=== PATIENT | female | born 1995 | race Caucasian/White ===

== ENCOUNTER 2017-10-20 10:15 | Emergency (ER) | payer OTHER, SELFPAY ==
[2017-10-20 10:36] VITALS: BP 108/80; PULSE 97; RESP 20; TEMP 36.6; O2SAT 100; BMI 20.1
--- NOTE | 2017-10-20 10:50 | HMH.EDUTC ---
[facility] [place] Impression: Positive test Disposition: Home, Self-Care Condition on Discharge: Good Instructions: DI for -- Discomforts and Remedies Additional Instructions: Call OB to get scheduled for first US. Start vitamins. No smoking, no alcohol, no NSAIDs Prescriptions: No.40/Iron/FA/Dha [ Multi-Dha Softgel] 1 each PO DAILY 90 Days #90 cap Referrals: David Thao [Primary Care Provider] - Time of Disposition: 10:55 Medical Decision Making - Medical Records Medical records reviewed: Yes: I reviewed the patient's medical records. Vital Signs: 10/20/17 10:36 Temperature 97.8 F Temperature Source Temporal Artery Scan Pulse Rate [Left Brachial] 97 H Respiratory Rate 20 Blood Pressure [Left Arm] 108/80 Blood Pressure Mean [Left Arm] 89 Blood Pressure Source [Left Arm] Automatic Cuff Blood Pressure Position [Left Arm] Sitting 02 Sat by Pulse Oximetry 100 Oxygen Delivery Method Room Air - Lab Data Lab results reviewed: Yes: I reviewed the patient's lab results. - Severo Inquiry Pt receiving controlled substance: No [facility] [place] - General Stated complaint: NEED PREG TEST Time Seen by Provider: 10/20/17 10:40 Mode of Arrival: Ambulatory Source of Information: Patient Limitations: No Limitations Description of Symptoms (Recalled from Triage Doc. by RN): REQUESTS TEST HEENT Symptoms (Recalled from RN notes): No Resp Symptoms (Recalled from RN notes): No Skin Symptoms (Recalled from RN notes): No MS Symptoms (Recalled from RN notes): No Functional Status (Recalled from RN notes): N/A - History of Present Illness Provider Complaint: LMP 09/07/17 then had 1 day of bleeding on 09/24. Missed next period. Took home test and it was positive. Here for confirmation. Relieving factors: none Exacerbating factors: none Associated symptoms: denies other symptoms Treatments prior to arrival: none - Related Data Previous Rx's Medication Instructions Recorded No.40/Iron/FA/Dha 1 each PO DAILY 90 Days #90 cap 10/20/17 [ Multi-Dha Softgel] Allergies Allergy/AdvReac Type Severity Reaction Status Date / Time No Known Allergies Allergy Verified 10/20/17 10:36 - Worker's Comp Is this a Worker's Comp case?: No [facility] History I have reviewed the patient's past medical history: Yes Medical History: Denies:: Cancer, Diabetes Mellitus Type 1, Diabetes Mellitus Type 2, MRSA Amputation: No Fractures: No - Social History Smoking Status: Current every day smoker Tobacco Type: cigarettes Alcohol Intake: never - Psychiatric History Expresses thoughts of harming self/others: None Suicide Plan Description: No Plan ROS Obtained: Yes All systems reviewed & no additional complaints - Genitourinary Female Genitourinary: Reports absent period Physical Exam - General General appearance: alert, in no apparent distress - Head Head exam: atraumatic, normocephalic, normal inspection - Eye Eye exam: Present: normal appearance, PERRL, EOMI - Neck Neck exam: Present: normal inspection. Absent: meningismus, lymphadenopathy - Chest Chest inspection: Present: normal inspection, symmetric chest wall rise. Absent: tenderness - Respiratory Respiratory exam: Present: normal lung sounds bilaterally. Absent: respiratory distress - Cardiovascular Cardiovascular exam: Present: regular rate, normal rhythm. Absent: JVD - Abdominal Exam Abdominal exam: Present: soft, normal bowel sounds. Absent: distention, tenderness, guarding - Extremities Exam Extremities exam: Present: normal inspection, full ROM, normal capillary refill. Absent: calf tenderness - Back Exam Back exam: Present: normal inspection. Absent: tenderness - Neurological Exam Neurological exam: Present: alert, oriented X3 - Psychiatric Psychiatric exam: Present: normal affect, normal mood - Skin Skin exam: Present: warm, dry
--- NOTE | 2017-10-20 10:54 | ED_ITS ---
[facility] [place] Clinical Impression: Positive test Disposition: Home, Self-Care Condition on Discharge: Good Instructions: DI for -- Discomforts and Remedies Additional Instructions: Call OB to get scheduled for first US. Start vitamins. No smoking, no alcohol, no NSAIDs Prescriptions: No.40/Iron/FA/Dha [ Multi-Dha Softgel] 1 each PO DAILY 90 Days #90 cap Referrals: David Thao [Primary Care Provider] - Time of Disposition: 10:55 Medical Decision Making - Medical Records Medical records reviewed: Yes: I reviewed the patient's medical records. Vital Signs: 10/20/17 10:36 Temperature 97.8 F Temperature Source Temporal Artery Scan Pulse Rate [Left Brachial] 97 H Respiratory Rate 20 Blood Pressure [Left Arm] 108/80 Blood Pressure Mean [Left Arm] 89 Blood Pressure Source [Left Arm] Automatic Cuff Blood Pressure Position [Left Arm] Sitting 02 Sat by Pulse Oximetry 100 Oxygen Delivery Method Room Air - Lab Data Lab results reviewed: Yes: I reviewed the patient's lab results. - Severo Inquiry Pt receiving controlled substance: No [facility] [place] - General Stated complaint: NEED PREG TEST Time Seen by Provider: 10/20/17 10:40 Mode of Arrival: Ambulatory Source of Information: Patient Limitations: No Limitations Description of Symptoms (Recalled from Triage Doc. by RN): REQUESTS TEST HEENT Symptoms (Recalled from RN notes): No Resp Symptoms (Recalled from RN notes): No Skin Symptoms (Recalled from RN notes): No MS Symptoms (Recalled from RN notes): No Functional Status (Recalled from RN notes): N/A - History of Present Illness Provider Complaint: LMP 09/07/17 then had 1 day of bleeding on 09/24. Missed next period. Took home test and it was positive. Here for confirmation. Relieving factors: none Exacerbating factors: none Associated symptoms: denies other symptoms Treatments prior to arrival: none - Related Data Previous Rx's Medication Instructions Recorded No.40/Iron/FA/Dha 1 each PO DAILY 90 Days #90 cap 10/20/17 [ Multi-Dha Softgel] Allergies Allergy/AdvReac Type Severity Reaction Status Date / Time No Known Allergies Allergy Verified 10/20/17 10:36 - Worker's Comp Is this a Worker's Comp case?: No [facility] History I have reviewed the patient's past medical history: Yes Medical History: Denies:: Cancer, Diabetes Mellitus Type 1, Diabetes Mellitus Type 2, MRSA Amputation: No Fractures: No - Social History Smoking Status: Current every day smoker Tobacco Type: cigarettes Alcohol Intake: never - Psychiatric History Expresses thoughts of harming self/others: None Suicide Plan Description: No Plan ROS Obtained: Yes All systems reviewed & no additional complaints - Genitourinary Female Genitourinary: Reports absent period Physical Exam - General General appearance: alert, in no apparent distress - Head Head exam: atraumatic, normocephalic, normal inspection - Eye Eye exam: Present: normal appearance, PERRL, EOMI - Neck Neck exam: Present: normal inspection. Absent: meningismus, lymphadenopathy - Chest Chest inspection: Present: normal inspection, symmetric chest wall rise. Absent : tenderness - Respiratory Respiratory ex
[2017-10-20 10:59] VITALS: BP 108/80; PULSE 97; RESP 20; TEMP 36.6; O2SAT 100
[2017-10-20 12:15] LABS: UTC Pregnancy Test, Urine Positive (Negative)
== END 2017-10-20 11:00 | disposition home or self-care (01) ==
PROVIDERS: Emergency Provider Physician Assistant; Family Provider Pediatrics; PCP Pediatrics
DX: Z32.01 Encounter for pregnancy test, result positive (principal); F17.210 Nicotine dependence, cigarettes, uncomplicated
CPT/HCPCS: 81025; 99202

== ENCOUNTER 2017-11-03 13:37 | Emergency (ER) | payer OTHER, SELFPAY ==
[2017-11-03 13:39] VITALS: BP 129/69; PULSE 90; RESP 18; TEMP 36.7; O2SAT 98; BMI 19.1
--- NOTE | 2017-11-03 13:58 | US_ITS ---
US OB transvaginal Ordering Physician: Isaiah Saini MD Patient Age: 22 years: Female HISTORY: ITS.REASON: RLQ pain early 9 week with right lower quadrant pain. Previous history of cyst on right and left ovary TECHNIQUE: Transvaginal pelvic ultrasound COMPARISON :None FINDINGS Tiny intrauterine gestational sac with early yolk sac is seen at the superior aspect of the endometrial cavity.. Mean sac size is 8.9 mm which very early gestation likely~ 4.5 weeks, (which less than would be anticipated from estimated gestational age of 9 weeks 2 days, based on LMP 08/30/2017.) . The small yolk sac measures 4 mm. No cardiac activity evident as of yet no heart flicker. RIGHT OVARY.: Right ovarian Cyst measuring 1.65 cm This is nonspecific. May reflect a corpus luteum cyst. It Will benefit from follow-up given the additional echogenic material along its anterior wall.... There is no increased flow at its margin. No findings to raise significant concern regarding ectopic. However patient may benefit from correlation with serum beta quantitative hCG in follow-up as well... Back on previous January 2017 CT, this patient's has had moderate-sized cyst on the ovaries on previous CT studies and other studies.. The right ovary including the cyst measures 3.7 x 2.9 cm. X 2.5 cm LEFT OVARY: measures 2.5 x 2 x 1.9 cm. It contains scattered small follicles. Largest 5 mm size.. No fluid in the cul-de-sac == IMPRESSION: ======== 1. Very early small intrauterine gestation.. Estimated ~4.5 weeks G sac which is less than anticipated gestational age Small Yolk sac identified but no cardiac activity identified as of yet . No heart flicker evident A generous size right ovary which contains a 1.65 cm cyst May be corpus luteum cyst. However note additional echogenic material towards anterior aspect of this cyst noted.-Thus This cyst will benefit from follow-up on subsequent scans. No fluid in cul-de-sac.
--- NOTE | 2017-11-03 13:59 | HMH.EDUROGF ---
ED Disposition Clinical Impression: First trimester , Ovarian cyst, Left against medical advice Disposition: Home, Self-Care Condition on Discharge: Fair Additional Instructions: 1- the patient left ama with risk of uti, sepsis and . 2- follow up with OB in AM for a recheck. Referrals: David Thao [Primary Care Provider] - - Critical Care Critical Care Time: No Attestation: On 11/03/17, the high probability of a clinically significant, sudden or life threatening deterioration of the following system(s) required my full and direct attention, intervention and personal management. The time I documented below is in addition to time spent performing reported procedures but includes the following listed in this critical care notation. Medical Decision Making Vital Signs: 11/03/17 13:39 Temperature 98.1 F Temperature Source Oral Pulse Rate [Right Radial] 90 Respiratory Rate 18 Blood Pressure [Right Arm] 129/69 Blood Pressure Mean [Right Arm] 89 Blood Pressure Source [Right Arm] Automatic Cuff Blood Pressure Position [Right Arm] Sitting 02 Sat by Pulse Oximetry 98 Oxygen Delivery Method Room Air - Lab Data Lab Results 11/03/17 14:28: WBC 8.1, RBC 4.22, Hgb 13.0, Hct 38.1, MCV 90.4, MCH 30.8, MCHC 34.1, RDW 12.1, Plt Count 182, MPV 9.2, Neut % (Auto) 58.4, Lymph % (Auto) 36.3, [place] % (Auto) 3.9, Eos % (Auto) 1.0, Baso % (Auto) 0.4, Neut # (Auto) 4.8, Lymph # (Auto) 2.9, [place] # (Auto) 0.3, Eos # (Auto) 0.1, Baso # (Auto) 0.0 11/03/17 14:28: Sodium 138, Potassium 3.8, Chloride 105, Carbon Dioxide 26, Anion Gap 10.8, BUN 6 L, Creatinine 0.66, Estimated Creat Clear 110, Estimated GFR 112, Est GFR ( Amer) 136, Glucose 86, Calcium 8.7, Total Bilirubin 0.7, AST 9 L, ALT 26, Alkaline Phosphatase 48, Total Protein 7.2, Albumin 4.1, Globulin 3.1, Albumin/Globulin Ratio 1.3 11/03/17 14:28: HCG, Quant 8190 H 11/03/17 14:45: Lactic Acid 1.1 Result diagrams: 11/03/17 14:28 11/03/17 14:28 Orders (Tests/Meds): ED MEDICATIONS Discontinued Medications Generic Name Dose Route Start Last Admin Trade Name Linnette PRN Reason Stop Dose Admin Sodium Chloride 1,000 mls @ 999 mls/hr 11/03/17 14:00 Sod Chlor 0.9% 1000ml Bag IV 11/03/17 15:00 .Q1H1M [facility] ORDERS Category Date Time Status Drug Screen,Urine Stat Lab 11/03/17 13:57 Ordered Urinalysis and Microscopic Stat Lab 11/03/17 13:57 Ordered US OB transvaginal Stat Ultrasound 11/03/17 13:58 Taken - US Data US Images: Pelvis ED US Reviewed: Yes: I discussed the US results w/the radiologist Findings Narrative: I received a preliminary report from the integrated pest management technician about her right adnexal cysts with good flow. No torsion. She did have a with a yolk sac with no heart tones. Matches her hormone level of 8190 means between 3-4 weeks. - Severo Inquiry Pt receiving controlled substance: No Medical Decision Making Narrative: The patient remained stable, received Tylenol for her pain, she did have normal labs, she is the hCG quantitative level of 8190, ultrasound is positive for right adnexal cyst with good flow, she did have a pole and yolk sac or heart tone. He became a major emotional and started crying but I informed her that her hormone level ranges between 3-4 weeks. At this point she told me that she did have 2 hormone levels done at her fabric finisher and they were between 300-800 last week. This is possibly means that the is progressing normal. But I informed her that I do not I do not have all the facts, I requested an and out cath from her that she declined and signed AGAINST MEDICAL ADVICE. She is aware that a urinary tract infection can cause sepsis and . The baby that he was in the bedside and her cousin too. Female Urogenital HPI - General Stated complaint: 8 wk preg lower abd pains - History of Present Illness HPI Narrative: 22 years ol
--- NOTE | 2017-11-03 14:02 | ED_ITS ---
ED Disposition Clinical Impression: First trimester , Ovarian cyst, Left against medical advice Disposition: Home, Self-Care Condition on Discharge: Fair Additional Instructions: 1- the patient left ama with risk of uti, sepsis and . 2- follow up with OB in AM for a recheck. Referrals: David Thao [Primary Care Provider] - - Critical Care Critical Care Time: No Attestation: On 11/03/17, the high probability of a clinically significant, sudden or life threatening deterioration of the following system(s) required my full and direct attention, intervention and personal management. The time I documented below is in addition to time spent performing reported procedures but includes the following listed in this critical care notation. Medical Decision Making Vital Signs: 11/03/17 13:39 Temperature 98.1 F Temperature Source Oral Pulse Rate [Right Radial] 90 Respiratory Rate 18 Blood Pressure [Right Arm] 129/69 Blood Pressure Mean [Right Arm] 89 Blood Pressure Source [Right Arm] Automatic Cuff Blood Pressure Position [Right Arm] Sitting 02 Sat by Pulse Oximetry 98 Oxygen Delivery Method Room Air - Lab Data Lab Results 11/03/17 14:28: WBC 8.1, RBC 4.22, Hgb 13.0, Hct 38.1, MCV 90.4, MCH 30.8, MCHC 34.1, RDW 12.1, Plt Count 182, MPV 9.2, Neut % (Auto) 58.4, Lymph % (Auto) 36.3 , [place] % (Auto) 3.9, Eos % (Auto) 1.0, Baso % (Auto) 0.4, Neut # (Auto) 4.8, Lymph # (Auto) 2.9, [place] # (Auto) 0.3, Eos # (Auto) 0.1, Baso # (Auto) 0.0 11/03/17 14:28: Sodium 138, Potassium 3.8, Chloride 105, Carbon Dioxide 26, Anion Gap 10.8, BUN 6 L, Creatinine 0.66, Estimated Creat Clear 110, Estimated GFR 112, Est GFR ( Amer) 136, Glucose 86, Calcium 8.7, Total Bilirubin 0.7, AST 9 L, ALT 26, Alkaline Phosphatase 48, Total Protein 7.2, Albumin 4.1, Globulin 3.1, Albumin/Globulin Ratio 1.3 11/03/17 14:28: HCG, Quant 8190 H 11/03/17 14:45: Lactic Acid 1.1 Result diagrams: 11/03/17 14:28 11/03/17 14:28 Orders (Tests/Meds): ED MEDICATIONS Discontinued Medications Generic Name Dose Route Start Last Admin Trade Name Linnette PRN Reason Stop Dose Admin Sodium Chloride 1,000 mls @ 999 mls/hr 11/03/17 14:00 Sod Chlor 0.9% 1000ml Bag IV 11/03/17 15:00 .Q1H1M [facility] ORDERS Category Date Time Status Drug Screen,Urine Stat Lab 11/03/17 13:57 Ordered Urinalysis and Microscopic Stat Lab 11/03/17 13:57 Ordered US OB transvaginal Stat Ultrasound 11/03/17 13:58 Taken - US Data US Images: Pelvis ED US Reviewed: Yes: I discussed the US results w/the radiologist Findings Narrative: I received a preliminary report from the firestopper technician about her right adnexal cysts with good flow. No torsion. She did have a with a yolk sac with no heart tones. Matches her hormone level of 8190 means between 3-4 weeks. - Severo Inquiry Pt receiving controlled substance: No Medical Decision Making Narrative: The patient remained stable, received Tylenol for her pain, she did have normal labs, she is the hCG quantitative level of 8190, ultrasound is positive for right adnexal cyst with good flow, she did have a pole and yolk sac or heart tone. He became a major emotional and started crying but I informed her that her hormone level ranges between 3-4 weeks. At this poi
[2017-11-03 14:37] LABS: Basophils % 0.4 % (0.1-2.0); Eosinophils # 0.1 K/mm3 (0.0-0.4); Hematocrit 38.1 % (37.0-47.0); Lymphocytes # 2.9 K/mm3 (0.7-4.5); Lymphocytes % 36.3 K/mm3 (10-50); Mean Corpuscular HGB Conc 34.1 g/dL (31.8-35.4); Mean Corpuscular Hemoglobin 30.8 pg (27.0-31.2); Mean Corpuscular Volume 90.4 fl (81-99); Mean Platelet Volume 9.2 fl (7.4-10.4); Monocytes # 0.3 K/mm3 (0.1-1.0); Monocytes % 3.9 % (1.7-9.3); Neutrophils # 4.8 K/mm3 (1.8-7.8); Neutrophils % 58.4 % (37.0-80.0); Platelet Count 182 K/mm3 (142-424); Red Blood Count 4.22 M/mm3 (4.20-5.40); Red Cell Distribution Width 12.1 % (11.5-17.5); White Blood Count 8.1 K/mm3 (4.8-10.8)
[2017-11-03 14:49] LABS: Alanine Aminotransferase 26 U/L (12-78); Albumin Level 4.1 gm/dL (3.4-5.0); Albumin/Globulin Ratio 1.3 (1.1-1.8); Alkaline Phosphatase 48 U/L (46-116); Anion Gap 10.8 mEq/L (5-15); Aspartate Amino Transferase 9 U/L (15-37); Bilirubin,Total 0.7 mg/dL (0.2-1.0); Blood Urea Nitrogen 6 mg/dL (7-18); Calcium 8.7 mg/dL (8.5-10.1); Carbon Dioxide 26 mmol/L (21.0-32.0); Chloride 105 mmol/L (98-107); Creatinine Clearance Estimated 110 mL/min (0-300); Creatinine,Serum 0.66 mg/dL (0.55-1.02); Estimated Glomerular Filt Rate 112 ml/min (>60); GFR (African American) 136 ML/MIN (>60); Globulin 3.1 gm/dl (1.3-3.2); Glucose 86 mg/dL (74-106); Potassium 3.8 mmoL/L (3.5-5.1); Sodium 138 mmol/L (136-145); Total Protein,Serum 7.2 gm/dL (6.4-8.2)
[2017-11-03 15:18] LABS: Lactic Acid 1.1 mmol/L (0.4-2.0)
[2017-11-03 15:19] LABS: HCG,Quantitative 8190 mIU/mL
[2017-11-03 16:16] VITALS: BP 129/69; PULSE 90; RESP 18; TEMP 36.7; O2SAT 98
== END 2017-11-03 16:20 | disposition home or self-care (01) ==
PROVIDERS: Emergency Provider Emergency Medicine; Family Provider Pediatrics; PCP Pediatrics
DX: N83.201 Unspecified ovarian cyst, right side (principal); R10.31 Right lower quadrant pain; F17.210 Nicotine dependence, cigarettes, uncomplicated; Z32.01 Encounter for pregnancy test, result positive
CPT/HCPCS: 76830; 80053; 83605; 84702; 85025; 99282

== ENCOUNTER 2019-09-18 18:04 | Outpatient (CLI) | payer OTHER, SELFPAY ==
[2019-09-18 18:30] VITALS: BP 121/63; PULSE 73; RESP 18; TEMP 36.7; O2SAT 99; BMI 21.4
[2019-09-18 18:36] LABS: Microscopic, Urine URINE MICROSCOPIC (MICROSCOPIC)
[2019-09-18 18:37] LABS: Appearance,Urine CLEAR (Clear); Bilirubin,Urine Negative (Negative); Blood, Urine Negative (Negative); Color,Urine YELLOW (Yellow); Glucose,Urine (UA) Negative (Negative); Ketones,Urine Negative (Negative); Leukocyte Esterase,Urine Negative (Negative); Nitrate,Urine Negative (Negative); Protein,Urine Negative (Negative); Specific Gravity, Urine <= 1.005 (1.005-1.030); Urobilinogen,Urine 0.2 EU/dl (0.2)
[2019-09-18 18:45] LABS: Amphetamine/Metha Screen,Urine Negative ng/mL (<1000); Barbiturates Screen,Urine Negative ng/mL (<200); Benzodiazepines Screen,Urine Negative ng/mL (<200); Cannabinoid Screen,Urine Positive ng/mL (<50); Cocaine Screen,Urine Negative ng/mL (<300); Methadone Screen,Urine Negative ng/mL (<300); Opiate Screen,Urine Negative ng/mL (<300); Phencyclidine Screen,Urine Negative ng/mL (<25)
[2019-09-18 18:53] LABS: Squamous Epithelial Cell,Urine Occasional #/hpf (0-5); WBC,Urine Occasional #/hpf (0-3)
== END 2019-09-18 19:55 | disposition home or self-care (01) ==
LOC: OBOUT 18:05 → OB 18:07
PROVIDERS: PCP Pediatrics; Visit Provider Obstetrics & Gynecology
DX: O26.892 Other specified pregnancy related conditions, second trimester (principal); Z3A.24 24 weeks gestation of pregnancy; R10.31 Right lower quadrant pain; M54.5 Low back pain
CPT/HCPCS: 59025; 80305; 81001; G0463

== ENCOUNTER 2020-12-29 01:29 | Emergency (ER) | payer OTHER, SELFPAY ==
[2020-12-29] VITALS (7 sets, daily range): BP systolic 112–126; BP diastolic 56–86; PULSE 73–98; RESP 16–22; TEMP 36.5–36.6; O2SAT 97–100; BMI 19.1
--- NOTE | 2020-12-29 01:42 | ECG_ITS ---
APPROVED REPORT Exam: Resting ECG HR:69 bpm ECG Measurements Heart Rate 69 AXES QRSd 86 QRS 92 QT 436 T 49 QTc 467 Conclusion Accelerated Junctional rhythm Rightward axis Nonspecific ST abnormality Abnormal ECG Electronically signed by : Joe Barragan, 12/30/2020 15:02:55
--- NOTE | 2020-12-29 02:13 | HMH.EDNVD ---
ED Disposition Clinical Impression: Enteritis, SIRS (systemic inflammatory response syndrome) Disposition: Home, Self-Care Condition on Discharge: Good Instructions: DI for Enteritis Additional Instructions: fluids and see pcp for follow up Referrals: David Thao [Primary Care Provider] - - Critical Care Critical Care Time: No Attestation: On 12/29/20, the high probability of a clinically significant, sudden or life threatening deterioration of the following system(s) required my full and direct attention, intervention and personal management. The time I documented below is in addition to time spent performing reported procedures but includes the following listed in this critical care notation. Medical Decision Making - Medical Records Medical records reviewed: Yes: I reviewed the patient's medical records. - Severo Inquiry Pt receiving controlled substance: No Vital Signs: 12/29/20 01:30 12/29/20 01:46 12/29/20 02:00 Temperature 97.7 F Temperature Source Oral Pulse Rate 79 80 Pulse Rate [Left Radial] 98 H Respiratory Rate 22 16 Blood Pressure 126/77 118/56 L Blood Pressure [Right Arm] 126/77 Blood Pressure Mean 77 Blood Pressure Mean [Right Arm] 93 Blood Pressure Source [Right Arm] Automatic Cuff Blood Pressure Position [Right Arm] Sitting 02 Sat by Pulse Oximetry 99 97 100 Oxygen Delivery Method Room Air Room Air Room Air 12/29/20 02:30 12/29/20 03:00 12/29/20 04:10 Temperature Temperature Source Pulse Rate 73 77 77 Pulse Rate [Left Radial] Respiratory Rate 16 16 Blood Pressure 118/86 121/71 118/79 Blood Pressure [Right Arm] Blood Pressure Mean 95 Blood Pressure Mean [Right Arm] Blood Pressure Source [Right Arm] Blood Pressure Position [Right Arm] 02 Sat by Pulse Oximetry 100 100 98 Oxygen Delivery Method Room Air Room Air - Lab Data Lab results reviewed: Yes: I reviewed the patient's lab results. Lab Results 12/29/20 01:45: WBC 17.8 H, RBC 5.00, Hgb 15.1, Hct 43.9, MCV 87.7, MCH 30.1, MCHC 34.4, RDW 12.8, Plt Count 230, MPV 9.9, Neut % (Auto) 86.7 H, Lymph % (Auto) 8.0 L, [place] % (Auto) 4.3, Eos % (Auto) 0.7, Baso % (Auto) 0.3, Neut # (Auto) 15.4 H, Lymph # (Auto) 1.4, [place] # (Auto) 0.8, Eos # (Auto) 0.1, Baso # (Auto) 0.1, Total Counted 100, Neutrophils % (Manual) 85 H, Lymphocytes % (Manual) 12, Monocytes % (Manual) 2, Basophils % (Manual) 1.0, Platelet Estimate Normal, RBC Morphology Not Reportable, Stomatocytes 1+, ESR 7 12/29/20 01:45: Sodium 137, Potassium 3.4 L, Chloride 104, Carbon Dioxide 21 L, Anion Gap 15.4 H, BUN 11, Creatinine 0.60, Estimated Creat Clear 118, Estimated GFR 122, Est GFR ( Amer) 147, Glucose 150 H, Calcium 9.9, Total Bilirubin 1.3, AST 21, ALT 16, Alkaline Phosphatase 56, C-Reactive Protein 1.7, Total Protein 7.9, Albumin 5.1 H, Globulin 2.8, Albumin/Globulin Ratio 1.8, Amylase 74 12/29/20 01:45: Serum HCG, Qual Negative 12/29/20 01:45: Lipase 57 12/29/20 03:15: Lactate 1.4 Result diagrams: 12/29/20 01:45 12/29/20 01:45 Orders (Tests/Meds): ED MEDICATIONS Generic Name Dose Route Start Last Admin Trade Name Freq PRN Reason Stop Dose Admin Sodium Chloride 1,000 mls @ 999 mls/hr 12/29/20 01:45 12/29/20 01:56 Sod Chlor 0.9% 1000ml Bag IV 12/29/20 02:45 999 mls/hr .Q1H1M [place] Administration Sodium Chloride 1,000 mls @ 999 mls/hr 12/29/20 02:45 12/29/20 03:20 Sod Chlor 0.9% 1000ml Bag IV 12/29/20 03:45 999 mls/hr .Q1H1M [place] Administration Discontinued Medications Generic Name Dose Route Start Last Admin Trade Name Freq PRN Reason Stop Dose Admin Diatrizoate Meglum/Diatrizoate Sod 30 ml 12/29/20 02:38 12/29/20 02:45 Diatrizoate Em 66% & Diatrizoate Na 10% 30ml Udc PO 12/29/20 02:39 30 ml ONCE ONE Administration Iopamidol 75 ml 12/29/20 04:10 12/29/20 04:11 Iopamidol-370 (76%);100ml Bottle IV 12/29/20 04:11 75 ml ONCE ONE Administration Ondansetron HC
[2020-12-29 02:18] LABS: Basophils # 0.1 K/mm3 (0-0.2); Basophils % 0.3 % (0.1-2.0); Eosinophils # 0.1 K/mm3 (0.0-0.4); Eosinophils % 0.7 % (0.1-12.0); Hematocrit 43.9 % (37.0-47.0); Hemoglobin 15.1 g/dL (12.2-16.2); Lymphocytes # 1.4 K/mm3 (0.7-4.5); Mean Corpuscular HGB Conc 34.4 g/dL (31.8-35.4); Mean Corpuscular Hemoglobin 30.1 pg (27.0-31.2); Mean Corpuscular Volume 87.7 fl (81-99); Mean Platelet Volume 9.9 fl (7.4-10.4); Monocytes # 0.8 K/mm3 (0.1-1.0); Monocytes % 4.3 % (1.7-9.3); Neutrophils # 15.4 K/mm3 (1.8-7.8); Neutrophils % 86.7 % (37.0-80.0); Platelet Count 230 K/mm3 (142-424); Red Cell Distribution Width 12.8 % (11.5-17.5); White Blood Count 17.8 K/mm3 (4.8-10.8)
[2020-12-29 02:21] LABS: Chloride 104 mmol/L (98-107); MANUAL DIFFERENTIAL MANUAL DIFFERENTIAL (MANUAL DIFF); Potassium 3.4 mmoL/L (3.5-5.1); Sodium 137 mmol/L (136-145)
[2020-12-29 02:23] LABS: Amylase 74 U/L (30-110); Blood Urea Nitrogen 11 mg/dl (7-17); Creatinine Clearance Estimated 118 mL/min (50-200); Estimated Glomerular Filt Rate 122 ml/min (>60); GFR (African American) 147 ML/MIN (>60); Lipase 57 U/L (23-300)
[2020-12-29 02:24] LABS: Alanine Aminotransferase 16 U/L (12-78); Albumin Level 5.1 g/dl (3.5-5.0); Albumin/Globulin Ratio 1.8 (1.1-1.8); Alkaline Phosphatase 56 U/L (38-126); Anion Gap 15.4 mEq/L (5-15); Aspartate Amino Transferase 21 U/L (14-36); Bilirubin,Total 1.3 mg/dl (0.2-1.3); Calcium 9.9 mg/dl (8.4-10.2); Carbon Dioxide 21 mmol/L (22.0-30.0); Globulin 2.8 g/dL (1.3-3.2); Glucose 150 mg/dl (74-100); Total Protein,Serum 7.9 g/dl (6.3-8.2)
[2020-12-29 02:29] LABS: C-Reactive Protein 1.7 mg/L (0-4)
[2020-12-29 02:30] LABS: HCG Qualitative, Serum Negative (Negative)
--- NOTE | 2020-12-29 02:38 | CT_ITS ---
PROCEDURE INFORMATION: Exam: CT Abdomen And Pelvis With Contrast Exam date and time: 12/29/2020 2:38 AM Age: 25 years old Clinical indication: Patient HX: Nausea and vomiting since 8 last night; Additional info: N/v TECHNIQUE: Imaging protocol: Computed tomography of the abdomen and pelvis with contrast. Radiation optimization: All CT scans at this facility use at least one of these dose optimization techniques: automated exposure control; mA and/or kV adjustment per patient size (includes targeted exams where dose is matched to clinical indication); or iterative reconstruction. Contrast material: ISOVUE; Contrast volume: 75 ml; Contrast route: IV; COMPARISON: ABDPELW/O CT ABD PELVIS W/O CONTRAST 02/15/2017 8:14 PM FINDINGS: Lungs: There is a 9 mm ground-glass opacity within the posterior basilar segment of the left lower lobe stable since the prior exam. The lung bases are otherwise clear. Heart: Visualized cardiac chambers are normal. Liver: Mild hepatic steatosis. Gallbladder and bile ducts: Status post cholecystectomy. Pancreas: No peripancreatic inflammatory infiltration or fluid. No ductal dilation. Spleen: No splenomegaly or splenic mass. Adrenal glands: Normal. No mass. Kidneys and ureters: No nephrolithiasis, ureterolithiasis or hydronephrosis. Stomach and bowel: There is mild colonic wall thickening most notable in the transverse colon which may be exaggerated by poor distention. However, colitis is not excluded. Appendix: No evidence of appendicitis. No appendicolith. Intraperitoneal space: No free fluid, free air or focal inflammatory infiltration. Vasculature: No abdominal aortic aneurysm. The portal, splenic and superior mesenteric veins appear patent. Lymph nodes: No enlarged lymph nodes within the retroperitoneal space or mesentery. Urinary bladder: Unremarkable as visualized. Reproductive: Unremarkable as visualized. Bones/joints: Unremarkable. No acute fracture. No osteolytic or blastic bone lesions. Soft tissues: Paraspinous and extracorporeal soft tissues are unremarkable. IMPRESSION: 1. Mild hepatic steatosis. 2. Status post cholecystectomy. 3. Mild colonic wall thickening which may be exaggerated by poor distention. Colitis is not excluded.
[2020-12-29 02:49] LABS: Erythrocyte Sedimentation Rate 7 mm/hr (0-20)
--- NOTE | 2020-12-29 02:50 | PC.NURSE ---
PO contrast finished at this time
[2020-12-29 02:56] LABS: Lymphocytes % 12 % (10-50); Monocytes % 2 % (2-9); Neutrophils % 85 % (42-76); Total Cells Counted 100
[2020-12-29 02:57] LABS: Platelet Estimate Normal
[2020-12-29 02:58] LABS: Stomatocytes 1+
[2020-12-29 03:43] LABS: Lactic Acid 1.4 mmol/L (0.7-2.1)
== END 2020-12-29 05:12 | disposition home or self-care (01) ==
PROVIDERS: Emergency Provider Emergency Medicine; PCP Pediatrics
DX: K52.9 Noninfective gastroenteritis and colitis, unspecified (principal); R65.10 Systemic inflammatory response syndrome (SIRS) of non-infectious origin without acute organ dysfunction; F17.210 Nicotine dependence, cigarettes, uncomplicated; F12.10 Cannabis abuse, uncomplicated
CPT/HCPCS: 74177; 80053; 82150; 83605; 83690; 84703; 85007; 85025; 85651; 86140; 87040; 93005; 96365; 96366; 96375; 99283; J2405; Q9967

== ENCOUNTER 2023-07-01 10:29 | Emergency (ER) | payer BC, SELFPAY ==
--- NOTE | 2023-07-01 10:29 | ECG_ITS ---
APPROVED REPORT Exam: Resting ECG HR:68 bpm ECG Measurements Heart Rate 68 AXES VA 168 P 51 QRSd 90 QRS 95 QT 386 T 60 QTc 404 Conclusion SINUS RHYTHM BORDERLINE RIGHT AXIS DEVIATION [QRS AXIS > 90] NONSPECIFIC T-WAVE ABNORMALITY BORDERLINE ECG UNCONFIRMED REPORT Electronically signed by : Joe Barragan MD 07/01/2023 17:48:32
[2023-07-01 10:33] VITALS: BP 126/86; PULSE 68; RESP 19; TEMP 37; O2SAT 99
--- NOTE | 2023-07-01 10:52 | XR_ITS ---
FINAL REPORT TECHNIQUE: Single view chest CLINICAL HISTORY: chest pain FINDINGS: A single view of the chest was obtained. The heart and mediastinum are within normal limits. The lungs are clear. There is no pneumothorax. Osseous structures are unremarkable. IMPRESSION: No acute cardiopulmonary process. Reviewed, Interpreted and Dictated by Sarah Fuentes MD Transcribed by Maura Morley Authenticated and [facility]
[2023-07-01 11:00] VITALS: BP 131/90; PULSE 75; RESP 19; O2SAT 98
[2023-07-01 11:00] LABS: Basophils % 0.5 % (0.1-2.0); Eosinophils # 0.2 K/mm3 (0.0-0.4); Eosinophils % 1.8 % (0.1-12.0); Hematocrit 39.9 % (37.0-47.0); Hemoglobin 14.1 g/dL (12.2-16.2); Lymphocytes # 3.3 K/mm3 (0.7-4.5); Lymphocytes % 38.3 % (10-50); Mean Corpuscular HGB Conc 35.4 g/dL (31.8-35.4); Mean Corpuscular Hemoglobin 32.5 pg (27.0-31.2); Mean Corpuscular Volume 91.8 fl (81-99); Mean Platelet Volume 8.7 fl (7.4-10.4); Monocytes # 0.2 K/mm3 (0.1-1.0); Monocytes % 2.8 % (1.7-9.3); Neutrophils # 4.9 K/mm3 (1.8-7.8); Neutrophils % 56.6 % (37.0-80.0); Platelet Count 210 K/mm3 (142-424); Red Blood Count 4.35 M/mm3 (4.20-5.40); Red Cell Distribution Width 12.4 % (11.5-17.5); White Blood Count 8.6 K/mm3 (4.8-10.8)
[2023-07-01 11:06] LABS: Alanine Aminotransferase 18 U/L (12-78); Albumin Level 4.6 g/dl (3.5-5.0); Albumin/Globulin Ratio 1.6 (1.1-1.8); Alkaline Phosphatase 49 U/L (38-126); Anion Gap 12.8 mEq/L (5-15); Aspartate Amino Transferase 27 U/L (14-36); Bilirubin,Total 0.8 mg/dl (0.2-1.3); Blood Urea Nitrogen 4 mg/dl (7-17); Calcium 9.2 mg/dl (8.4-10.2); Carbon Dioxide 25 mmol/L (22.0-30.0); Chloride 104 mmol/L (98-107); Creatinine Clearance Estimated 121 mL/min (50-200); Estimated Glomerular Filt Rate 120 ml/min (>60); GFR (African American) 145 ML/MIN (>60); Globulin 2.9 g/dL (1.3-3.2); Glucose 114 mg/dl (74-100); Potassium 3.8 mmoL/L (3.5-5.1); Sodium 138 mmol/L (136-145); Total Protein,Serum 7.5 g/dl (6.3-8.2)
--- NOTE | 2023-07-01 11:17 | PC.NURSE ---
Pt ambulatory to and from bathroom. Warm blanket provided. No other needs voiced. Call light within reach.
[2023-07-01 11:19] LABS: Troponin I < 0.01 ng/ml (0.00-0.034)
[2023-07-01 11:22] LABS: HCG,Quantitative 13 mIU/ml (0-5.42)
[2023-07-01 11:26] LABS: Microscopic, Urine URINE MICROSCOPIC (MICROSCOPIC)
[2023-07-01 11:29] LABS: Appearance,Urine CLEAR (Clear); Bilirubin,Urine Negative (Negative); Blood, Urine 3+ (Negative); Color,Urine YELLOW (Yellow); Glucose,Urine (UA) Negative (Negative); Ketones,Urine Negative (Negative); Leukocyte Esterase,Urine TRACE (Negative); Nitrate,Urine Negative (Negative); PH,Urine 8.5 (5.0-8.5); Protein,Urine TRACE (Negative); Specific Gravity, Urine 1.015 (1.005-1.030); Urobilinogen,Urine 0.2 EU/dl (0.2)
[2023-07-01 11:31] VITALS: BP 130/90; PULSE 93; RESP 18; O2SAT 98
--- NOTE | 2023-07-01 11:34 | US_ITS ---
PROCEDURE INFORMATION: Exam: US , Transvaginal Exam date and time: 07/01/2023 11:51 AM Age: 27 years old Clinical indication: complicated by abdominal or pelvic pain; Lower; First trimester (<14 weeks 0 days); Gestational age or lmp: 5w6d; ; Additional info: Lmp 05/25/20, vaginal bleeding, hcg quant 13 LABS AND CLINICAL REPORTS: Last menstrual period start date: 05/25/2023 TECHNIQUE: Imaging protocol: Real-time transvaginal obstetrical ultrasound of the maternal pelvis with image documentation. Transvaginal imaging was used for better evaluation of the fetus, adnexa, and/or cervix. COMPARISON: No relevant prior studies available. FINDINGS: Gestation: There is no intrauterine identified. Otherwise the uterus appears unremarkable. The endometrial thickness measures 6 mm. Other findings: The ovaries appear unremarkable. IMPRESSION: No evidence of intrauterine .
--- NOTE | 2023-07-01 11:35 | HMH.EDGENADL ---
Discharge Plan Disposition Patient Disposition: Home, Self-Care Chief Complaint: Chest Pain Prescriptions Prescriptions: No Action sertraline 50 mg tablet 50 mg PO DAILY Referrals Follow up/Referrals: Provider,Referral, MD [Primary Care Provider] - See instructions Activity Restrictions/Add. Instructions Additional Instructions/Restrictions: At this time is felt you are safe to be discharged home. If new or worsening symptoms please do not hesitate to return the emergency department. You have follow-up on Saturday at 9:[address] Hein. Clinical Impressions Clinical Impression: Chest pain, Vaginal bleeding, Elevated serum hCG Discharge ED Provider: Bakari Thomas General Adult HPI General Chief complaint: Chest Pain Stated complaint: chest pain Time Seen by Provider: 07/01/23 11:00 Mode of Arrival: Family Vehicle Source of Information: Patient Limitations: No Limitations Description of Symptoms (Recalled from ER Triage Doc. by RN): Pt c/o midsternal chest pain and burning that began after eating spicy bugles on . She has tried Pepto, Tums, and Rolaids. States she also is having suprapubic pain and vaginal bleeding that began this morning. States she did have a positive test yesterday. LMP 05/25/23. Denies any previsou cardiac issues. she is . History of Present Illness HPI narrative: Patient is a 27-year-old female who presents to the emergency department for multiple complaints. First complaint is chest pain, intermittent, substernal, worse with p.o. intake and lying down since . Does not radiate. Patient also has recently had a positive test at home. She had acute onset abdominal pain earlier this morning that awoke her from her sleep, since she has had vaginal bleeding and passage of clots. Last menstrual period the end of April. No other acute complaints at this time. Related Data Home Medications Medication Instructions Recorded Confirmed sertraline 50 mg tablet 50 mg PO DAILY 07/01/23 07/01/23 Allergies Allergy/AdvReac Type Severity Reaction Status Date / Time No Known Allergies Allergy Verified 07/01/23 10:52 [facility] Disclaimer: The information contained in this section may have been updated after the patient was seen, as this information can be updated by other users. Surgical History (Updated 07/01/23 @ 10:57 by Analia Gonsales RN) Hx of section Hx of cholecystectomy Social History Smoking Status: Current every day smoker alcohol intake: never current occupational status: other Travel in the last 8 weeks: None ROS Obtained: Yes Systems reviewed as appropriate & no additional complaints except as documented Physical Exam General General appearance: alert and other (Appearing in pain) Head Head exam: atraumatic and normocephalic Eye Eye exam: Present PERRL and EOMI ENT ENT exam: Present mucous membranes moist Neck Neck exam: Present normal inspection Chest Chest inspection: Present normal inspection and symmetric chest wall rise Respiratory Respiratory exam: Present normal lung sounds bilaterally; Absent respiratory distress Cardiovascular Cardiovascular exam: Present regular rate and normal rhythm Abdominal Exam Abdominal exam: Present soft, tenderness (Suprapubic) and guarding (Voluntary) Extremities Exam Extremities exam: Present normal inspection Neurological Exam Neurological exam: Present alert Psychiatric Psychiatric exam: Present normal affect Skin Skin exam: Present warm and dry Medical Decision Making Severo Inquiry Pt receiving controlled substance: No Vital Signs: 07/01/23 10:33 07/01/23 11:00 07/01/23 11:31 Temperature 98.6 F Temperature Source Oral Pulse Rate 75 93 H Pulse Rate [Right] 68 Respiratory Rate 19 19 18 Blood Pressure 131/90 130/90 Blood Pressure [Right Arm] 126/86 Blood Pressure Mean 97 Blood Pressure Mean [Right Arm] 99 Blood Pr
[2023-07-01 11:56] LABS: Bacteria,Urine Trace /lpf; RBC,Urine 20-50 #/hpf (0-3); Squamous Epithelial Cell,Urine Occasional #/hpf (0-5)
--- NOTE | 2023-07-01 12:29 | PC.NURSE ---
RAD at for CXR
--- NOTE | 2023-07-01 12:33 | PC.NURSE ---
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 Thomas is No IUP seen and both ovaries look and have good flow .
--- NOTE | 2023-07-01 13:11 | PC.NURSE ---
APPT MADE WITH DR JONES 07/03/2023 @ 9:45
[2023-07-01 13:16] VITALS: BP 114/62; PULSE 79; RESP 17; TEMP 36.7; O2SAT 98
== END 2023-07-01 13:29 | disposition home or self-care (01) ==
PROVIDERS: Emergency Provider Emergency Medicine
DX: R07.9 Chest pain, unspecified (principal); R10.9 Unspecified abdominal pain; F17.210 Nicotine dependence, cigarettes, uncomplicated; O20.9 Hemorrhage in early pregnancy, unspecified; Z3A.01 Less than 8 weeks gestation of pregnancy; O99.331 Smoking (tobacco) complicating pregnancy, first trimester
CPT/HCPCS: 71045; 76817; 80053; 81001; 84484; 84702; 85025; 86900; 86901; 93005; 96374; 96375; 99284; J2405

== ENCOUNTER 2023-10-08 12:02 | Emergency (ER) | payer BC, SELFPAY ==
[2023-10-08 13:00] VITALS: BP 124/89; PULSE 101; RESP 18; TEMP 36.9; O2SAT 99; BMI 21.6
--- NOTE | 2023-10-08 13:09 | ED_ITS ---
Discharge Plan Disposition Patient Disposition: Home, Self-Care Condition: Good Prescriptions Prescriptions: New ondansetron 4 mg tablet,disintegrating 4 mg PO Q8H PRN (Reason: nausea and vomiting) Qty: 10 0RF No Action sertraline 100 mg tablet 100 mg PO DAILY Referrals Follow up/Referrals: Imani Barrientos MD [Primary Care Provider] - See instructions Activity Restrictions/Add. Instructions Additional Instructions/Restrictions: *Monitor Temp, Over the counter Motrin or Tylenol as directed/as needed Tylenol every 4 hours and Motrin every 6 hours (as long as your family doctor has told you that you can take it) for fever or pain. and straight to ER if unable to lower temp less than 101.0 after medication given *Warm salt water gargles may help to soothe the throat *Throat Lozenges? *Warm fluids like tea with honey may help to soothe the throat? *Sleep elevated *Humidifier/Vaporizer Your throat swab was sent for culture. Those results are typically sent to your primary care. Be sure to follow up in 2-3 days with your family doctor/primary care physician if no improvement so they can review those result and treat if necessary. If you don?t have a primary care doctor, I recommend you get one but in the mean time, you will have to return to a walk in clinic Follow up IMMEDIATELY for new or worsening symptoms or no Noticeable improvement over the next 48-72 hours. 911 for difficulty breathing or swallowing You were tested for today for Upper Respiratory Panel with COVID19 your test result should be back in the next 24 hours, you may check your results on the [facility] [employer] [facility] if your COVID test is positive you must Quarantine for 5 days Clinical Impressions Clinical Impression: Viral syndrome Stand Alone Forms Stand Alone Forms: Work/School Release Instructions Patient Instructions: DI for Viral Syndrome, Sore Throat Discharge ED Provider: Christie Choudhury [facility] [place] HPI General Stated complaint: sore throat, nauseous, fever Time Seen by Provider: 10/08/23 13:09 History of Present Illness Provider Complaint: Patient states that she woke up this morning with chills, body aches, sore throat and feeling a little dizzy on and off States that she was at a super[employer] over the weekend not sure if anyone there was sick or not Related Data Home Medications Medication Instructions Recorded Confirmed sertraline 100 mg tablet 100 mg PO DAILY 10/08/23 10/08/23 Previous Rx's Medication Instructions Recorded ondansetron 4 mg disintegrating 4 mg PO Q8H PRN nausea and 10/08/23 tablet vomiting #10 tabs Allergies Allergy/AdvReac Type Severity Reaction Status Date / Time No Known Allergies Allergy Verified 07/11/23 11:06 [facility] Disclaimer: The information contained in this section may have been updated after the patient was seen, as this information can be updated by other users. Medical History Spontaneous Surgical History Hx of section Hx of cholecystectomy Family History Other Alcoholism Asthma Cancer Diabetes FHx: mental illness Hypertension Substance abuse Social History Smoking Status: Current every day smoker alcohol intake: never current occupational status: other Travel in the last 8 weeks: None ROS Obtained: Yes All systems reviewed & no additional complaints except as documented and Yes Systems reviewed as appropriate & no additional complaints except as documented Constitutional Constitutional: Reports system reviewed and no additional complaints, except as documented, Reports as per HPI, Reports body ache, Reports chills, Reports fever(s) and Reports headache(s) ENT Ears, Nose, Mouth, and Throat: Reports system reviewed and no additional complaints, except as documented, Reports as per HPI, Reports dizziness, Reports headache(s), Reports nasal congestion and Reports sore throat Cardiovascular Cardiovascular: Reports system reviewed and no additional complaints, except as documented and Reports as per HPI Respiratory Respiratory: Reports system reviewed and no additional complaints, except as documented and Reports as per HPI Gastrointestinal Gastrointestingal: Reports system reviewed and no additional complaints, except as documented and as per HPI Neurologic Neurologic: Reports dizziness and Reports headache(s) Physical Exam General General appearance: alert and in no apparent distress ENT ENT exam: Present mucous membranes moist Expanded ENT Exam Throat exam: Present tonsillar erythema Respiratory Respiratory exam: Present normal lung sounds bilaterally; Absent respiratory distress or wheezes Cardiovascular Cardiovascular exam: Present regular rate, normal rhythm and normal heart sounds Neurological Exam Neurological exam: Present alert, oriented X3 and normal gait Medical Decision Making Severo Inquiry Pt receiving controlled substance: No Severo was queried for this patient: No Lab Data Lab results reviewed: Yes I reviewed the patient's lab results.
[2023-10-08 13:24] LABS: UTC Influenza A Antigen Negative (Negative); UTC Influenza B Antigen Negative (Negative); UTC Strep Screen (Rapid) Negative (Negative)
[2023-10-08 13:34] VITALS: BP 124/89; PULSE 101; RESP 18; TEMP 36.9; O2SAT 99
[2023-10-08 13:46] LABS: Adenovirus,PCR Not Detected (NotDetected); Coronavirus 19, PCR Not Detected (NotDetected); Coronavirus 229E Not Detected (NotDetected); Coronavirus NL63 Not Detected (NotDetected); Coronavirus OC43 Not Detected (NotDetected); Coronovirus HKU1,PCR Not Detected (NotDetected); Human Metapneumovirus Not Detected (NotDetected); Influenza A, PCR Not Detected (NotDetected); Influenza AH1, 2009 Not Detected (NotDetected); Influenza AH1, PCR Not Detected (NotDetected); Influenza AH3,PCR Not Detected (NotDetected); Influenza B, PCR Not Detected (NotDetected); Parainfluenza 1, PCR Not Detected (NotDetected); Parainfluenza 2, PCR Not Detected (NotDetected); Parainfluenza 3, PCR Not Detected (NotDetected); Parainfluenza 4, PCR Not Detected (NotDetected); Respiratory Syncytial Virus Not Detected (NotDetected); Rhinovirus/Enterovirus Not Detected (NotDetected)
== END 2023-10-08 13:39 | disposition home or self-care (01) ==
PROVIDERS: Emergency Provider Nurse Practitioner; PCP Family Medicine
DX: R51.9 Headache, unspecified (principal); R50.9 Fever, unspecified; R11.0 Nausea; R09.81 Nasal congestion; R42 Dizziness and giddiness; R07.0 Pain in throat; B34.9 Viral infection, unspecified
CPT/HCPCS: 87632; 87635; 87804; 87880; 99204; 99212; G0463

== ENCOUNTER 2023-11-17 08:22 | Emergency (ER) | payer BC, SELFPAY ==
[2023-11-17 08:23] VITALS: BP 124/80; PULSE 73; RESP 17; TEMP 36.5; O2SAT 99
--- NOTE | 2023-11-17 08:36 | PC.NURSE ---
Dr. Andrews at BS for pt eval
--- NOTE | 2023-11-17 08:42 | HMH.EDGENADL ---
Discharge Plan Disposition Patient Disposition: Home, Self-Care Prescriptions Prescriptions: New sulfamethoxazole-trimethoprim [Bactrim DS] 800-160 mg tablet 1 tab PO BID 10 Days Qty: 20 0RF cephalexin 500 mg capsule 500 mg PO QID 10 Days Qty: 40 0RF No Action sertraline 100 mg tablet 100 mg PO DAILY ondansetron 4 mg tablet,disintegrating 4 mg PO Q8H PRN (Reason: nausea and vomiting) Qty: 10 0RF Referrals Follow up/Referrals: Imani Barrientos MD [Primary Care Provider] - See instructions Activity Restrictions/Add. Instructions Additional Instructions/Restrictions: If you are not improving in 1 to 2 weeks I recommend you follow-up [facility] for further evaluation and management. I also recommend that you use warm compresses on your breast until this is improving. Return to the emergency room with any high fevers or spreading redness. [facility] Address [address] [place] [id number] Phone Call?[phone]:[phone]?[phone]:[phone] Clinical Impressions Clinical Impression: Cellulitis of left breast, Encounter for smoking cessation counseling Instructions Patient Instructions: DI for Skin Abscess Discharge ED Provider: Chaim Andrews General Adult HPI General Chief complaint: Skin/Abscess/Foreign Body Stated complaint: left nipple infected Time Seen by Provider: 11/17/23 08:29 Mode of Arrival: Family Vehicle Source of Information: Patient Limitations: No Limitations Description of Symptoms (Recalled from ER Triage Doc. by RN): Pt reports a possible infected nipple piercing to her left breast. States she had it pierced about 3 yr ago and no issues until Saturday (11/15) whne she awoke to her nipple being tender, red and irritated. She has been cleansing the area in rubbing alcohol and soaked the piercing as well. States the swelling and redness has worsened this morning, prompting her to seek treatment. Denies any fever. History of Present Illness HPI narrative: Patient is a 28-year-old female presenting today with sudden pain tenderness and swelling in the left nipple area. She has a history of piercings and took her piercing out yesterday. No history of any cancers that she is aware of. No purulence coming from the nipple itself. No fevers or chills. Related Data Home Medications Medication Instructions Recorded Confirmed sertraline 100 mg tablet 100 mg PO DAILY 10/08/23 10/08/23 Previous Rx's Medication Instructions Recorded ondansetron 4 mg disintegrating 4 mg PO Q8H PRN nausea and 10/08/23 tablet vomiting #10 tabs cephalexin 500 mg capsule 500 mg PO QID 10 days #40 caps 11/17/23 sulfamethoxazole 800 1 tab PO BID 10 days #20 tabs 11/17/23 mg-trimethoprim 160 mg tablet (Bactrim DS) Allergies Allergy/AdvReac Type Severity Reaction Status Date / Time No Known Allergies Allergy Verified 07/11/23 11:06 [facility] Disclaimer: The information contained in this section may have been updated after the patient was seen, as this information can be updated by other users. Medical History Spontaneous Surgical History Hx of section Hx of cholecystectomy Family History Other Alcoholism Asthma Cancer Diabetes FHx: mental illness Hypertension Substance abuse Social History Smoking Status: Current every day smoker alcohol intake: never current occupational status: other Travel in the last 8 weeks: None ROS Obtained: Yes All systems reviewed & no additional complaints except as documented Physical Exam General General appearance: alert Expanded Chest Exam Female Torso: 1. left nipple inflammed and swollen in the central aspect of the areola, no purulence or significant swelling beneath or surrounding tissue Respiratory Respiratory exam: Present normal lung sounds bilaterally Cardiovascular Cardiovascular exam: Present regular rate and normal rhythm Neurological Exam Neurological exam: Present alert and oriented X3 Medical Decision Making Severo Inquiry Pt receiving controlled substance: No Vital Signs: 11/17/23 08:23 Temperature 97.7 F Temperature Source Oral Pulse Rate [Left] 73 Respiratory Rate 17 Blood Pressure [Right Arm] 124/80 Blood Pressure Mean [Right Arm] 94 Blood Pressure Source [Right Arm] Automatic Cuff 02 Sat by Pulse Oximetry 99 Oxygen Delivery Method Room Air Orders (Tests/Meds): ED MEDICATIONS Generic Name Dose Route Start Last Admin Trade Name Linnette PRN Reason Stop Dose Admin Cephalexin HCl 500 mg 11/17/23 08:38 Cephalexin 500mg Capsule PO 11/17/23 08:39 ONCE ONE Trimethoprim/Sulfamethoxazole 1 each 11/17/23 08:38 Sulfa/Trimethoprim 1 Tablet PO 11/17/23 08:39 ONCE ONE Medical Decision Narrative: Patient is a 28-year-old female with a history of smoking and nipple piercings presenting today with localized swelling and tenderness over the central aspect of her left areola and nipple. She has since removed the piercing I have advised that she do not replace this. I also advised that she stop smoking as this certainly is contributory from an infectious standpoint. The localized area of swelling is very small I do not suspect there is a significant fluid collection that require surgical intervention at the moment and we will treat this as cellulitis right now. Will cover for staph and strep with Bactrim and Keflex. First dose of antibiotics given in the emergency department she was sent home with prescription. Remote possibility would be worsening abscess as well as inflammatory breast cancer. This is unlikely however not definitively able to be ruled out at the moment. I have given her information on the comprehensive breast care clinic in [facility] if she is not improving. She also has follow-up with [facility] as she has been managed for breast related conditions there in the past as well. She is understanding was discharged in stable condition. Critical Care Critical Care Time Critical Care Time: No
[2023-11-17] MEDS: cephALEXin 500MG CAPSULE 500 MG PO (08:45)
[2023-11-17] MEDS: SULFA/TRIMETHOPRIM 1 TABLET 1 EACH PO (08:45)
[2023-11-17 08:50] VITALS: BP 124/80; PULSE 81; RESP 18; TEMP 36.5; O2SAT 98
== END 2023-11-17 08:50 | disposition home or self-care (01) ==
PROVIDERS: Emergency Provider Student in an Organized Health Care Education/Training Program; PCP Family Medicine
DX: N61.0 Mastitis without abscess (principal); F17.210 Nicotine dependence, cigarettes, uncomplicated; Z71.6 Tobacco abuse counseling
CPT/HCPCS: 99283

== ENCOUNTER 2023-11-28 12:43 | Outpatient (CLI) | payer BC, SELFPAY ==
--- NOTE | 2023-11-28 12:47 | US_ITS ---
PROCEDURE INFORMATION: Exam: US Left Breast, Complete Exam date and time: 11/28/2023 12:52 PM Age: 28 years old Clinical indication: Nipple discharge; Left; Nipple pain TECHNIQUE: Imaging protocol: Complete ultrasound of all four quadrants of the left breast and the retroareolar regions, including ultrasound of the axilla when performed. COMPARISON: No relevant prior studies available. FINDINGS: ULTRASOUND: Breast ultrasound findings: Sonographic images of the left breast including the retroareolar region, all 4 quadrants and the axilla demonstrates multiple slightly heterogeneous hypoechoic masses as follows: 12 o'clock axis 2 cm from the nipple measuring 0.4 x 0.5 x 0.4 cm., 1 o'clock axis 2 cm from the nipple measuring 0.5 x 0.6 x 0.4 cm. , 2 o'clock axis 2 cm from the nipple measuring 0.4 x 0.3 x 0.5 cm , 4 o'clock axis 1 cm from the nipple 0.5 x 0.4 x 0.5 cm. , and in the 10 o'clock axis 2 cm from the nipple measuring 0.4 x 0.4 x 0.3 cm. Their multiplicity and similar appearance are highly suggestive of multiple focal areas of fibrocystic change.. No architectural distortion or acoustical shadowing. No skin thickening or axillary adenopathy. IMPRESSION: 1. Multiple masses scattered in the left breast likely reflect focal areas of benign fibrocystic change. A six-month follow-up left breast ultrasound is recommended to ensure stability over time 2. Further evaluation of nipple discharge is spontaneous clear and/or hemorrhagic may be obtained with breast MRI ASSESSMENT: BI-RADS Category 3: Probably benign.
== END 2023-11-28 23:59 ==
LOC: RAD 12:43
PROVIDERS: PCP Nurse Practitioner; Visit Provider Nurse Practitioner
DX: N64.4 Mastodynia (principal); N64.52 Nipple discharge
CPT/HCPCS: 76641

== ENCOUNTER 2024-01-28 10:46 | Emergency (ER) | payer BC, SELFPAY ==
[2024-01-28 11:00] VITALS: BP 117/77; PULSE 82; RESP 18; TEMP 36.7; O2SAT 98
[2024-01-28 11:20] LABS: UTC Strep Screen (Rapid) Negative (Negative)
--- NOTE | 2024-01-28 11:42 | ED_ITS ---
Discharge Plan Disposition Patient Disposition: Home, Self-Care Condition: Good Prescriptions Prescriptions: New cjcqdnxncsxyocb-rnalrarzo-LZ [Bromfed DM] 2-30-10 mg/5 mL syrup 10 ml PO Q4-6H PRN (Reason: cold symptoms/cough) Qty: 200 0RF No Action sertraline 100 mg tablet 100 mg PO DAILY Referrals Follow up/Referrals: Imani Barrientos MD [Primary Care Provider] - See instructions Activity Restrictions/Add. Instructions Additional Instructions/Restrictions: If no improvement in a week, follow up with PCP Clinical Impressions Clinical Impression: Acute upper respiratory infection Stand Alone Forms Stand Alone Forms: Work/School Release Instructions Patient Instructions: DI for Viral Upper Respiratory Infection -- Adult Discharge ED Provider: Fernanda Hui [facility] General Stated complaint: runny nose, congestion Mode of Arrival: Ambulatory Source of Information: Patient Limitations: No Limitations Time Seen by Provider: 01/28/24 11:25 Description of Symptoms (Recalled from Triage Doc. by RN): Pt's symptoms are runny nose, sore throat, congestion, and migraine. HEENT Symptoms (Recalled from RN notes): Yes Resp Symptoms (Recalled from RN notes): No Skin Symptoms (Recalled from RN notes): No MS Symptoms (Recalled from RN notes): No Functional Status (Recalled from RN notes): n/a Related Data Home Medications Medication Instructions Recorded Confirmed sertraline 100 mg tablet 100 mg PO DAILY 10/08/23 01/28/24 Previous Rx's Medication Instructions Recorded bhqtszqeiivocxs-vpuuvxqjiycxbju-BD 10 ml PO Q4-6H PRN cold 01/28/24 2 mg-30 mg-10 mg/5 mL oral syrup symptoms/cough #200 mL (Bromfed DM) Allergies Allergy/AdvReac Type Severity Reaction Status Date / Time No Known Allergies Allergy Verified 01/28/24 11:18 Worker's Comp Is this a Worker's Comp case?: No [facility] Disclaimer: The information contained in this section may have been updated after the patient was seen, as this information can be updated by other users. Medical History Spontaneous Surgical History Hx of section Hx of cholecystectomy Family History Other Alcoholism Asthma Cancer Diabetes FHx: mental illness Hypertension Substance abuse Social History Smoking Status: Current every day smoker tobacco type: cigarettes packs per day: 1 alcohol intake: never substance use type: marijuana current occupational status: employed and other Travel in the last 8 weeks: None ROS Obtained: Yes All systems reviewed & no additional complaints except as documented Constitutional Constitutional: Reports system reviewed and no additional complaints, except as documented, Reports fatigue, Reports headache(s) and Reports malaise Eyes Eyes: Reports system reviewed and no additional complaints, except as documented ENT Ears, Nose, Mouth, and Throat: Reports system reviewed and no additional complaints, except as documented, Reports headache(s), Reports nasal congestion, Reports nasal discharge, Reports post nasal drip, Reports sinus pain, Reports sinus pressure and Reports sore throat Cardiovascular Cardiovascular: Reports system reviewed and no additional complaints, except as documented Respiratory Respiratory: Reports system reviewed and no additional complaints, except as documented and Reports non-productive cough Gastrointestinal Gastrointestingal: Reports system reviewed and no additional complaints, except as documented Genitourinary Female Genitourinary: Reports system reviewed and no additional complaints, except as documented Musculoskeletal Musculoskeletal: Reports system reviewed and no additional complaints, except as documented Integumentary/Breasts Skin/Breast: Reports system reviewed and no additional complaints, except as documented Neurologic Neurologic: Reports system reviewed and no additional complaints, except as documented and Reports headache(s) Endocrine Endocrine: Reports system reviewed and no additional complaints, except as documented and Reports fatigue Hematologic/Lymphatic Henatologic/Lymphatic: Reports system reviewed and no additional complaints, except as documented Allergic/Immunologic Allergic/Immunologic: Reports system reviewed and no additional complaints, except as documented Physical Exam General General appearance: alert Comment: ill appearing Head Head exam: atraumatic and normocephalic Eye Eye exam: Present normal appearance Expanded ENT Exam External ear exam: Present normal external inspection Nose exam: Present sinus tenderness (frontal/maxillary) Nasal speculum exam: Bilateral: other (clear discharge with edematous mucosa) Mouth exam: Present normal external inspection Teeth exam: Present normal inspection Throat exam: Present tonsillar erythema Neck Neck exam: Present normal inspection Chest Chest inspection: Present normal inspection and symmetric chest wall rise Respiratory Respiratory exam: Present normal lung sounds bilaterally Cardiovascular Cardiovascular exam: Present regular rate and normal rhythm Abdominal Exam Abdominal exam: Present soft Extremities Exam Extremities exam: Present normal inspection Back Exam Back exam: Present normal inspection Neurological Exam Neurological exam: Present alert and oriented X3 Psychiatric Psychiatric exam: Present normal affect and normal mood Skin Skin exam: Present warm, dry and intact Lymphatic Lymphatic Findings: no adenopathy Medical Decision Making Severo Inquiry Pt receiving controlled substance: No Severo was queried for this patient: No Vital Signs: 01/28/24 11:00 Temperature 98.0 F Temperature Source Oral Pulse Rate [Right Radial] 82 Respiratory Rate 18 Blood Pressure [Right Arm] 117/77 Blood Pressure Mean [Right Arm] 90 Blood Pressure Source [Right Arm] Automatic Cuff Blood Pressure Position [Right Arm] Sitting 02 Sat by Pulse Oximetry 98 Oxygen Delivery Method Room Air Lab Data Lab Results 01/28/24 11:11: Strep Scn Rapid Clinic Negative Orders (Tests/Meds): ORDERS Category Date Time Status Strep Screen Confirmation Stat Micro 01/28/24 11:11 Received
[2024-01-28 11:51] VITALS: BP 117/77; PULSE 82; RESP 18; TEMP 36.7; O2SAT 98
== END 2024-01-28 11:51 | disposition home or self-care (01) ==
PROVIDERS: Emergency Provider Nurse Practitioner Family; PCP Family Medicine
DX: R07.0 Pain in throat (principal); J06.9 Acute upper respiratory infection, unspecified; R09.81 Nasal congestion; R05.9 Cough, unspecified; F17.210 Nicotine dependence, cigarettes, uncomplicated
CPT/HCPCS: 87880; 99212; 99214; G0463

== ENCOUNTER 2024-03-12 16:01 | Outpatient (CLI) | payer BC, SELFPAY ==
[2024-03-12 17:34] LABS: HCG,Quantitative 2187 mIU/ml (0-5.42)
[2024-03-14 10:23] LABS: Progesterone 11.6 ng/mL (.)
== END 2024-03-12 23:59 | disposition home or self-care (01) ==
LOC: LAB 16:03
PROVIDERS: PCP Family Medicine; Visit Provider Obstetrics & Gynecology
DX: Z30.9 Encounter for contraceptive management, unspecified (principal)
CPT/HCPCS: 36415; 84144; 84702

== ENCOUNTER 2024-03-19 09:06 | Outpatient (CLI) | payer BC, SELFPAY | END 2024-03-19 23:59 | disposition home or self-care (01) | LOC: LAB.DROPOF 03-20 09:06 | PROVIDERS: PCP Obstetrics & Gynecology; Visit Provider Obstetrics & Gynecology | DX: Z34.91 Encounter for supervision of normal pregnancy, unspecified, first trimester (principal); Z3A.01 Less than 8 weeks gestation of pregnancy | CPT/HCPCS: 87086 ==

== ENCOUNTER 2024-04-13 14:42 | Outpatient (CLI) | payer BC, SELFPAY ==
[2024-04-13 15:21] LABS: Basophils % 0.4 % (0.1-2.0); Eosinophils % 0.5 % (0.1-12.0); Hematocrit 33.3 % (37.0-47.0); Hemoglobin 11.2 g/dL (12.2-16.2); Lymphocytes # 2.3 K/mm3 (0.7-4.5); Lymphocytes % 29.4 % (10-50); Mean Corpuscular HGB Conc 33.7 g/dL (31.8-35.4); Mean Corpuscular Hemoglobin 30.9 pg (27.0-31.2); Mean Corpuscular Volume 91.7 fl (81-99); Mean Platelet Volume 9.9 fl (7.4-10.4); Monocytes # 0.2 K/mm3 (0.1-1.0); Neutrophils # 5.2 K/mm3 (1.8-7.8); Neutrophils % 66.8 % (37.0-80.0); Platelet Count 187 K/mm3 (142-424); Red Blood Count 3.63 M/mm3 (4.20-5.40); Red Cell Distribution Width 13.3 % (11.5-17.5); White Blood Count 7.8 K/mm3 (4.8-10.8)
[2024-04-14 14:40] LABS: HIV (1&2) Antibody Rapid NONREACTIVE (NONREACTIVE)
[2024-04-15 10:13] LABS: HCV Ab Non Reactive (Non Reactive); Hepatitis B Surface Antigen Negative (Negative)
[2024-04-15 12:14] LABS: Rubella Antibodies, IgG 4.41 index (Immune >0.99)
[2024-04-15 14:09] LABS: Rapid Plasma Reagin Ab Titer Non Reactive titer (NonRea<1:1)
== END 2024-04-13 23:59 | disposition home or self-care (01) ==
LOC: LAB 14:43
PROVIDERS: PCP Family Medicine; Visit Provider Obstetrics & Gynecology
DX: Z34.90 Encounter for supervision of normal pregnancy, unspecified, unspecified trimester (principal)
CPT/HCPCS: 86803; 86703; 36415; 85025; 86593; 86762; 86850; 87340

== ENCOUNTER 2024-06-30 08:45 | Outpatient (CLI) | payer BC, SELFPAY ==
--- NOTE | 2024-06-30 08:46 | US_ITS ---
PROCEDURE: US OB /MATERNAL DETAIL CLINICAL INDICATION: 20 week + Anatomy Scan-US OB Complete COMPARISON: No exams were available for comparison FINDINGS: Transabdominal sonographic images of the pelvis were obtained. From her established due date she is 20 weeks 2 days. Single viable intrauterine gestation. Cephalic position. Placenta: Anteriorplacenta grade 1. There is an average amount of fluid. The cervix appears satisfactory. Closed and measuring 3.36 cm in length. Complete survey performed and was unremarkable on the submitted images as in PACS. No discrete anomalies identified on survey imaging by technologist. Active fetus. Three-vessel cord with satisfactory umbilical cord insertion. 4- chamber heart noted. Situs, aortic arch, LVOT, RVOT, three-vessel view appear normal. Survey of brain & ventricles Unremarkable. Cerebellum, thalamus, choroid plexus, cisterna magna appear normal. Face and neck survey unremarkable. Profile and nasion not seen due to position. Lips and nose appeared normal. Diaphragm and chest views unremarkable. Abdomen: Both kidneys noted and unremarkable. There is mild bilateral renal pelvis dilation measuring 3.2 mm and 2.8 mm Stomach and bladder noted and satisfactory. Spine: Survey of the spine satisfactory with no anomalies identified nor imaged. Cervical, thoracic, lower spine appear normal. Both arms and legs noted. Amniotic Fluid: Adequate. Measurements: Average ultrasound age 20weeks 1day. Estimated due date by ultrasound age 0311/16/2024. Estimated weight 324g BPD = 20weeks 4days HC = 19weeks 6days AC = 20weeks 0 days FL = 20weeks 0 days Growth Percentile= 28 Heart Rate = 140bpm Cerebellum = 19weeks 5days Humerus = 20weeks HC/AC is 1.17 FL/BPD is 0.67 FL/AC is 0.22 IMPRESSION: 1. Viable fetus in the cephalic presentation with an anterior placenta grade 1. 2. The fluid is within normal limits. 3. Anatomical scan appears normal. 4. Profile and nasion not seen due to position and suggest repeat scan at 28 weeks. 5. There is mild bilateral renal pelvis dilation measuring 3.2 mm and 2.8 mm. Suggest repeat scan at 28 weeks. 6. biometry is consistent with the dates. Dictated by: Pedro Luis Ryan MD 06/30/2024 10:27 Pedro Luis Ryan MD in [facility] 06/30/2024 10:27
== END 2024-06-30 23:59 | disposition home or self-care (01) ==
LOC: RAD 08:46
PROVIDERS: PCP Family Medicine; Visit Provider Obstetrics & Gynecology
DX: Z3A.20 20 weeks gestation of pregnancy (principal); Z36.3 Encounter for antenatal screening for malformations; R82.5 Elevated urine levels of drugs, medicaments and biological substances; Z98.891 History of uterine scar from previous surgery; O09.292 Supervision of pregnancy with other poor reproductive or obstetric history, second trimester; O99.332 Smoking (tobacco) complicating pregnancy, second trimester
CPT/HCPCS: 76811

== ENCOUNTER 2024-08-28 12:17 | Outpatient (CLI) | payer BC, SELFPAY ==
--- NOTE | 2024-08-28 12:17 | US_ITS ---
PROCEDURE: US OB >= 14 WEEKS FETUS CLINICAL INDICATION: growth, profile and nasion views COMPARISON: US US OB /MATERNAL DETAIL from 06/30/2024 FINDINGS: Transabdominal sonographic images of the pelvis were obtained. The following parameters are obtained: From her established due date she is 28weeks 5days Viable fetus in the cephalic presentation with an anterolateral placenta grade 1. Placental lakes are seen The cervix measures 3.81 cm heart rate: 152bpm bpm. BPD: 28weeks 1day, 21 percentile HC: 28weeks 6days, 20 percentile AC: 27weeks 6days, 19 percentile FL: 27weeks 6days, 13 percentile HC/AC: 1.12 FL/BPD: 0.74 FL/AC: 0.22 Growth percentile: 14 Amniotic fluid index: 14.92cm, MVP 4.93 cm No obvious anomalies evident. profile seen, nasion, stomach, bladder, kidneys, three-vessel cord, four chamber heart appear normal. kidneys: No renal pelvis dilation seen today IMPRESSION: 1. Viable fetus in the cephalic presentation with an anterolateral placenta grade 1. Placental lakes are seen. 2. The fluid is within normal limits with an amniotic fluid index 14.92 cm, MVP 4.93 cm. 3. There has been good interval growth with the fetus currently 14th percentile. 4. profile and nasion are seen today and appear normal. 5. The previously reported renal pelvis dilation is not seen today. Dictated by: Pedro Luis Ryan MD 08/29/2024 07:53 Pedro Luis Ryan MD in [facility] 08/29/2024 07:53
== END 2024-08-28 23:59 | disposition home or self-care (01) ==
LOC: RAD 12:17
PROVIDERS: PCP Family Medicine; Visit Provider Obstetrics & Gynecology
DX: Z34.93 Encounter for supervision of normal pregnancy, unspecified, third trimester (principal); Z3A.28 28 weeks gestation of pregnancy
CPT/HCPCS: 76805

== ENCOUNTER 2024-09-07 08:36 | Outpatient (CLI) | payer BC, SELFPAY ==
[2024-09-07 08:58] LABS: Basophils % 0.4 % (0.1-2.0); Eosinophils # 0.1 K/mm3 (0.0-0.4); Eosinophils % 0.7 % (0.1-12.0); Hematocrit 33.1 % (37.0-47.0); Hemoglobin 11.6 g/dL (12.2-16.2); Lymphocytes # 2.9 K/mm3 (0.7-4.5); Lymphocytes % 26.2 % (10-50); Mean Corpuscular Hemoglobin 31.5 pg (27.0-31.2); Mean Corpuscular Volume 89.9 fl (81-99); Mean Platelet Volume 11.3 fl (7.4-10.4); Monocytes # 0.6 K/mm3 (0.1-1.0); Monocytes % 5.4 % (1.7-9.3); Neutrophils # 7.5 K/mm3 (1.8-7.8); Neutrophils % 66.8 % (37.0-80.0); Platelet Count 240 K/mm3 (142-424); Red Blood Count 3.68 M/mm3 (4.20-5.40); Red Cell Distribution Width 11.9 % (11.5-17.5); White Blood Count 11.2 K/mm3 (4.8-10.8)
[2024-09-07 09:33] LABS: Glucose,Fasting 77 mg/dl (74-100)
[2024-09-07 12:13] LABS: Glucose 1 Hour 131 mg/dL (74-100)
[2024-09-07 14:58] LABS: RPR W/RFX Titers Nonreactive (Nonreactive)
== END 2024-09-07 23:59 | disposition home or self-care (01) ==
LOC: LAB 08:38
PROVIDERS: PCP Nurse Practitioner; Visit Provider Obstetrics & Gynecology
DX: Z34.90 Encounter for supervision of normal pregnancy, unspecified, unspecified trimester (principal)
CPT/HCPCS: 36415; 82951; 85025; 86592

== ENCOUNTER 2024-09-09 20:05 | Outpatient (CLI) | payer BC, SELFPAY ==
[2024-09-09 20:11] VITALS: BMI 23.1
[2024-09-09 20:27] VITALS: BP 131/84; PULSE 81; RESP 16; TEMP 36.7; O2SAT 99; BMI 23.1
[2024-09-09 20:35] LABS: Microscopic, Urine URINE MICROSCOPIC (MICROSCOPIC)
[2024-09-09 20:41] LABS: Appearance,Urine CLEAR (Clear); Bilirubin,Urine Negative (Negative); Blood, Urine Negative (Negative); Color,Urine YELLOW (Yellow); Glucose,Urine (UA) Negative (Negative); Ketones,Urine Negative (Negative); Leukocyte Esterase,Urine Negative (Negative); Nitrate,Urine Negative (Negative); PH,Urine 6.5 (5.0-8.5); Protein,Urine Negative (Negative); Specific Gravity, Urine <= 1.005 (1.005-1.030); Urobilinogen,Urine 0.2 EU/dl (0.2)
[2024-09-09 20:53] LABS: Fetal Membrane Rupture (Rapid) Negative (Negative)
[2024-09-09 20:54] LABS: Bacteria,Urine Trace /lpf
[2024-09-09 21:01] LABS: Barbiturates Screen,Urine Negative ng/ml (<200)
[2024-09-09 21:02] LABS: Benzodiazepines Screen,Urine Negative ng/ml (<200)
[2024-09-09 21:03] LABS: Amphetamine/Metha Screen,Urine Negative ng/ml (<1000); Cocaine Screen,Urine Negative ng/ml (<300)
[2024-09-09 21:04] LABS: Cannabinoid Screen,Urine Negative ng/ml (<50); Methadone Screen,Urine Negative ng/ml (<300)
[2024-09-09 21:05] VITALS: BP 133/80; PULSE 80; O2SAT 99
[2024-09-09 21:05] LABS: Opiate Screen,Urine Negative ng/ml (<300)
[2024-09-09 21:06] LABS: Phencyclidine Screen,Urine Negative ng/ml (<25)
== END 2024-09-09 21:30 | disposition home or self-care (01) ==
LOC: OBOUT 20:08 → OB 20:09
PROVIDERS: PCP Family Medicine; Visit Provider Nurse Practitioner Obstetrics & Gynecology
DX: O42.913 Preterm premature rupture of membranes, unspecified as to length of time between rupture and onset of labor, third trimester (principal); Z3A.30 30 weeks gestation of pregnancy
CPT/HCPCS: 80307; 81001; 84112; G0463

== ENCOUNTER 2024-09-28 13:43 | Outpatient (CLI) | payer BC, SELFPAY ==
--- NOTE | 2024-09-28 13:57 | US_ITS ---
PROCEDURE: US OB BIOPHYSICAL PROFILE CLINICAL INDICATION: SGA COMPARISON: US US OB /MATERNAL DETAIL from 06/30/2024 US US OB >= 14 WEEKS FETUS from 08/28/2024 FINDINGS: Transabdominal sonographic images of the uterus were obtained. From her established due date she is 33weeks 1day. The following parameters are obtained: Viable Fetus in the cephalic presentation with an anterior placenta grade 2. There is a placental Johnson. Average ultrasound age is 32weeks 1day Estimated weight 1,861g, 4 lb 2 oz Cervix measures 3.60 cm. Measurements: heart Rate = 160bpm BPD = 32weeks 2days, 19 percentile HC = 33weeks 1day, 14 percentile AC = 32weeks 2days, 25 percentile FL = 30weeks 6days, 2 percentile HC/AC is 1.06 FL/BPD is 0.74 FL/AC is 0.21 12 percentile Amniotic fluid index: 9.58cm, MVP 5.67 cm Qualitative AFV:2 Breathing movements: 2 Gross Body Movements: 2 Tone: 2 Biophysical profile score: 8 Doppler evaluation of the umbilical artery: SD ratio: 2.55-3.55 normal 2.59-3.68 Resistive index: 0.64 No obvious anomalies evident.Kidneys, profile, stomach, bladder, four-chamber heart, three-vessel cord appear normal. IMPRESSION: 1. Viable fetus in the cephalic presentation with an anterior placenta grade 2. There is a placental Johnson seen. 2. The fluid is within normal limits with an amniotic fluid index 9.58 cm, MVP 5.67 cm. 3. Biophysical profile 8/8 with good breathing movement and movement seen. 4. SD ratio normal 2.55-3.55. 5. Limited anatomical scan appears normal. Dictated by: Pedro Luis Ryan MD 09/28/2024 17:24 Pedro Luis Ryan MD in [facility] 09/28/2024 17:24
== END 2024-09-28 23:59 | disposition home or self-care (01) ==
LOC: RAD 13:44
PROVIDERS: PCP Nurse Practitioner; Visit Provider Obstetrics & Gynecology
DX: O09.293 Supervision of pregnancy with other poor reproductive or obstetric history, third trimester (principal); O36.5930 Maternal care for other known or suspected poor fetal growth, third trimester, not applicable or unspecified; O99.333 Smoking (tobacco) complicating pregnancy, third trimester; Z3A.33 33 weeks gestation of pregnancy; R82.5 Elevated urine levels of drugs, medicaments and biological substances; Z98.891 History of uterine scar from previous surgery
CPT/HCPCS: 76816; 76819; 76820

== ENCOUNTER 2024-10-07 16:29 | Outpatient (CLI) | payer BC, SELFPAY ==
[2024-10-07 16:40] VITALS: BMI 23.3
[2024-10-07 17:05] LABS: Microscopic, Urine URINE MICROSCOPIC (MICROSCOPIC)
[2024-10-07 17:11] LABS: Appearance,Urine CLEAR (Clear); Bilirubin,Urine Negative (Negative); Blood, Urine Negative (Negative); Color,Urine YELLOW (Yellow); Glucose,Urine (UA) Negative (Negative); Ketones,Urine Negative (Negative); Leukocyte Esterase,Urine Negative (Negative); Nitrate,Urine Negative (Negative); Protein,Urine Negative (Negative); Urobilinogen,Urine 0.2 EU/dl (0.2)
[2024-10-07 17:22] LABS: Barbiturates Screen,Urine Negative ng/ml (<200)
[2024-10-07 17:23] LABS: Amphetamine/Metha Screen,Urine Negative ng/ml (<1000); Benzodiazepines Screen,Urine Negative ng/ml (<200)
[2024-10-07 17:24] LABS: Cannabinoid Screen,Urine Negative ng/ml (<50)
[2024-10-07] MEDS: LACTATED RINGERS 1000ML 1,000 ML 999 ML IV (17:24)
[2024-10-07 17:25] LABS: Cocaine Screen,Urine Negative ng/ml (<300); Methadone Screen,Urine Negative ng/ml (<300)
[2024-10-07 17:26] LABS: Opiate Screen,Urine Negative ng/ml (<300); Phencyclidine Screen,Urine Negative ng/ml (<25)
[2024-10-07 17:41] VITALS: BP 142/87; PULSE 80; RESP 19; TEMP 36.8; O2SAT 98; BMI 23.3
[2024-10-07 17:48] LABS: Bacteria,Urine 3+ /lpf; RBC,Urine Occasional #/hpf (0-3)
[2024-10-07] MEDS: hydrOXYzine pamoate 25MG CAPSULE 25 MG PO (18:19)
[2024-10-07] MEDS: CEFTRIAXONE SODIUM 1 GM in 0.9 % SODIUM CHLORIDE 50 ML IV (18:37)
== END 2024-10-07 20:38 | disposition home or self-care (01) ==
LOC: OBOUT 16:30 → OB 16:31
PROVIDERS: PCP Nurse Practitioner; Visit Provider Obstetrics & Gynecology
DX: O60.03 Preterm labor without delivery, third trimester (principal); Z3A.34 34 weeks gestation of pregnancy
CPT/HCPCS: 80307; 81001; 87086; G0463; J0696; J7120

== ENCOUNTER 2024-10-13 21:31 | Outpatient (CLI) | payer BC, SELFPAY ==
[2024-10-13 21:39] VITALS: BMI 53.1
[2024-10-13 21:43] VITALS: BP 147/88; PULSE 82; RESP 18; TEMP 36.9; O2SAT 99; BMI 24.1
[2024-10-13 21:47] LABS: Microscopic, Urine URINE MICROSCOPIC (MICROSCOPIC)
[2024-10-13 22:16] LABS: Appearance,Urine CLEAR (Clear); Bilirubin,Urine Negative (Negative); Blood, Urine Negative (Negative); Color,Urine YELLOW (Yellow); Glucose,Urine (UA) Negative (Negative); Ketones,Urine Negative (Negative); Leukocyte Esterase,Urine Negative (Negative); Nitrate,Urine Negative (Negative); PH,Urine 6.5 (5.0-8.5); Protein,Urine Negative (Negative); Specific Gravity, Urine <= 1.005 (1.005-1.030); Urobilinogen,Urine 0.2 EU/dl (0.2)
[2024-10-13 22:21] LABS: Basophils % 0.4 % (0.1-2.0); Eosinophils # 0.1 K/mm3 (0.0-0.4); Eosinophils % 0.9 % (0.1-12.0); Hematocrit 30.8 % (37.0-47.0); Hemoglobin 10.5 g/dL (12.2-16.2); Lymphocytes % 29.2 % (10-50); Mean Corpuscular HGB Conc 34.1 g/dL (31.8-35.4); Mean Corpuscular Hemoglobin 30.2 pg (27.0-31.2); Mean Corpuscular Volume 88.5 fl (81-99); Mean Platelet Volume 12.2 fl (7.4-10.4); Monocytes # 0.7 K/mm3 (0.1-1.0); Monocytes % 6.9 % (1.7-9.3); Neutrophils # 6.4 K/mm3 (1.8-7.8); Neutrophils % 62.1 % (37.0-80.0); Platelet Count 199 K/mm3 (142-424); Red Blood Count 3.48 M/mm3 (4.20-5.40); Red Cell Distribution Width 11.9 % (11.5-17.5); White Blood Count 10.4 K/mm3 (4.8-10.8)
[2024-10-13 22:25] VITALS: BP 142/85; PULSE 81
[2024-10-13 22:45] LABS: Albumin Level 3.6 g/dl (3.5-5.0); Chloride 108 mmol/L (98-107); Potassium 3.6 mmoL/L (3.5-5.1); Sodium 135 mmol/L (136-145)
[2024-10-13 22:48] LABS: Alanine Aminotransferase 13 U/L (12-78); Albumin/Globulin Ratio 1.2 (1.1-1.8); Alkaline Phosphatase 137 U/L (38-126); Anion Gap 8.6 mEq/L (5-15); Aspartate Amino Transferase 21 U/L (14-36); Bilirubin,Total 0.4 mg/dl (0.2-1.3); Blood Urea Nitrogen 4 mg/dl (7-17); Calcium 8.4 mg/dl (8.4-10.2); Carbon Dioxide 22 mmol/L (22.0-30.0); Creatinine Clearance Estimated 217 mL/min (50-200); Estimated Glomerular Filt Rate 190 ml/min (>60); GFR (African American) 230 ML/MIN (>60); Globulin 2.9 g/dL (1.3-3.2); Glucose 81 mg/dl (74-100); Total Protein,Serum 6.5 g/dl (6.3-8.2)
[2024-10-13 22:55] VITALS: BP 138/84
[2024-10-13 22:55] LABS: Benzodiazepines Screen,Urine Negative ng/ml (<200)
[2024-10-13] MEDS: ACETAMINOPHEN 500MG TAB 1000 MG PO (22:55)
[2024-10-13 22:56] LABS: Amphetamine/Metha Screen,Urine Negative ng/ml (<1000)
[2024-10-13 22:57] LABS: Barbiturates Screen,Urine Negative ng/ml (<200); Creatinine,Urine Random 17 mg/dL (Not Estab.); Methadone Screen,Urine Negative ng/ml (<300)
[2024-10-13 22:58] LABS: Cannabinoid Screen,Urine Negative ng/ml (<50)
[2024-10-13 22:59] LABS: Cocaine Screen,Urine Negative ng/ml (<300); Phencyclidine Screen,Urine Negative ng/ml (<25)
[2024-10-13 23:00] LABS: Opiate Screen,Urine Negative ng/ml (<300)
[2024-10-13 23:07] LABS: Uric Acid 3.6 mg/dl (2.5-6.2)
[2024-10-13 23:12] LABS: Activated Partial Thrombo Time 23.4 seconds (22.5-28.5); INR 0.79 (0.9-1.1); Prothrombin Time 8.9 seconds (9.2-12.1)
[2024-10-14 00:16] LABS: Fibrinogen 390 mg/dL (208.1-352.0)
[2024-10-14 00:19] LABS: Bacteria,Urine 1+ /lpf; WBC,Urine Occasional #/hpf (0-3)
[2024-10-14 00:20] VITALS: BP 138/78; PULSE 84
== END 2024-10-14 00:27 | disposition home or self-care (01) ==
LOC: OBOUT 21:33 → OB 21:35
PROVIDERS: PCP Nurse Practitioner; Visit Provider Obstetrics & Gynecology
DX: O16.3 Unspecified maternal hypertension, third trimester (principal); Z3A.35 35 weeks gestation of pregnancy
CPT/HCPCS: 80053; 80307; 81001; 82570; 84156; 84550; 85025; 85384; 85610; 85730; G0463

== ENCOUNTER 2024-10-14 09:57 | Inpatient (IN) | payer BC, SELFPAY ==
--- NOTE | 2024-10-14 10:14 | P.CONPHA_ITS ---
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 -ALVERTO COLED
--- NOTE | 2024-10-14 10:14 | HMH.PHAINT1 ---
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 -ALVERTO COLED
[2024-10-14 10:45] VITALS: BMI 24.6
[2024-10-14] MEDS: BETAMETHASONE ACET/PHOS 6MG/ML 5ML MDV 12 MG IM (10:58)
[2024-10-14 11:24] LABS: Basophils % 0.4 % (0.1-2.0); Eosinophils # 0.1 K/mm3 (0.0-0.4); Eosinophils % 0.7 % (0.1-12.0); Hematocrit 31.2 % (37.0-47.0); Hemoglobin 10.6 g/dL (12.2-16.2); Lymphocytes # 2.6 K/mm3 (0.7-4.5); Mean Corpuscular Hemoglobin 30.2 pg (27.0-31.2); Mean Corpuscular Volume 88.9 fl (81-99); Mean Platelet Volume 11.8 fl (7.4-10.4); Monocytes # 0.5 K/mm3 (0.1-1.0); Monocytes % 4.6 % (1.7-9.3); Neutrophils # 7.5 K/mm3 (1.8-7.8); Neutrophils % 69.8 % (37.0-80.0); Platelet Count 209 K/mm3 (142-424); Red Blood Count 3.51 M/mm3 (4.20-5.40); White Blood Count 10.7 K/mm3 (4.8-10.8)
[2024-10-14 11:37] VITALS: BP 136/91; PULSE 71; RESP 18; TEMP 36.7; O2SAT 100; BMI 24.6
[2024-10-14 11:50] LABS: Microscopic, Urine URINE MICROSCOPIC (MICROSCOPIC)
[2024-10-14 11:54] LABS: Appearance,Urine CLEAR (Clear); Bilirubin,Urine Negative (Negative); Blood, Urine Negative (Negative); Color,Urine YELLOW (Yellow); Glucose,Urine (UA) Negative (Negative); Ketones,Urine Negative (Negative); Leukocyte Esterase,Urine Negative (Negative); Nitrate,Urine Negative (Negative); PH,Urine 6.5 (5.0-8.5); Protein,Urine Negative (Negative); Urobilinogen,Urine 0.2 EU/dl (0.2)
[2024-10-14 12:07] LABS: Amphetamine/Metha Screen,Urine Negative ng/ml (<1000); Barbiturates Screen,Urine Negative ng/ml (<200)
[2024-10-14 12:08] LABS: Benzodiazepines Screen,Urine Negative ng/ml (<200)
[2024-10-14 12:08] LABS: Bacteria,Urine Trace /lpf; RBC,Urine Occasional #/hpf (0-3)
[2024-10-14 12:09] LABS: Cannabinoid Screen,Urine Negative ng/ml (<50); Cocaine Screen,Urine Negative ng/ml (<300)
[2024-10-14 12:10] LABS: Methadone Screen,Urine Negative ng/ml (<300); Opiate Screen,Urine Negative ng/ml (<300)
[2024-10-14 12:11] LABS: Phencyclidine Screen,Urine Negative ng/ml (<25)
--- NOTE | 2024-10-14 13:32 | EXP.OB.APHP ---
OB - H&P: HPI Antepartum History of Present Illness Chief complaint: Elevated BP and headache History of present illness: Mrs Celeste Willis is a 28 yo at 35w3d admitted to [facility] L&D for preeclampsia with labile BP and headaches. BP in the office today was 150/90. She complains of headache. No vision changes today. She reported SBP 170's at home this morning. She was seen in L&D last night for elevated blood pressure reading at home and spots in her vision. BP was 140's/80's last night. PIH labs were within normal limits but spot protein/creatinine ratio was elevated, 1.11. She has history of delivery at 36 weeks secondary to nonreassuring status. She subsequently lost baby at 4 days of age. Her second child was then delivered at 36 weeks and did well. Her previous provider delivered early because of history with first . She also has history of SAB x 2. She hasn't been feeling well. She reports increased pelvic pressure and intermittent nausea. Baby is active. She has history of x 2. She has had positive THC urine drug screen. She has past medical history of anxiety and depression. She is taking Sertraline 150 mg PO daily. History of Present Criteria for establishing EDC:: LMP confirmed by 1st trimester US care: good care Ultrasounds: normal mid trimester US Obstetrical complications: preeclampsia and previous Labs Blood type: A (+) positive Rubella: immune RPR/VDRL: nonreactive HBsAG: negative PFSH PFSH Disclaimer: The information contained in this section may have been updated after the patient was seen, as this information can be updated by other users. Medical History Pre-eclampsia affecting , antepartum Heartburn during Back pain LGSIL on Pap smear of cervix Tobacco use affecting , antepartum Nausea and vomiting in Depression affecting History of miscarriage, currently History of depression History of anxiety Spontaneous Surgical History Hx of section Hx of cholecystectomy Family History Other Alcoholism Asthma Cancer Diabetes FHx: mental illness Hypertension Substance abuse Social History (Updated 10/14/24 @ 11:49 by Merrill Spangler RN) Smoking Status: Current every day smoker tobacco type: e-cigarettes alcohol intake: never substance use type: marijuana current occupational status: unemployed Travel in the last 8 weeks: None Other Medical History Have you received the Flu Vaccine for this season: No Have you received the Pneumonia Vaccine: No Review of Systems Review of Systems Review of systems:: pertinent systems reviewed and negative unless documented below Constitutional Constitutional: Reports headache(s) Eyes Eyes: Reports floaters (intermittent black spots in her vision) ENT Ears, Nose, Mouth, and Throat: Reports headache(s) *Genitourinary Comments: + pelvic pressure *Neurologic Neurologic: Reports headache(s) Meds Home Medications and Allergies Home Medications ?Medication ?Instructions ?Recorded ?Confirmed ?Type cephalexin 500 mg capsule 500 mg PO Q6H 7 days #28 caps 10/12/24 10/14/24 Rx ondansetron 4 mg disintegrating 4 mg PO Q8HP PRN Nausea And 10/14/24 10/14/24 History tablet Vomiting sertraline 100 mg tablet 150 mg PO DAILY 10/14/24 10/14/24 History New Prescriptions to Start Prescriptions: Allergies Allergy/AdvReac Type Severity Reaction Status Date / Time No Known Allergies Allergy Verified 10/14/24 09:20 OB - H&P: Exam Physical Exam Vital signs: Temp Pulse Resp BP Pulse Ox O2 Del Method 98.0 F 71 18 136/91 H 100 Room Air 10/14/24 11:37 10/14/24 11:37 10/14/24 11:37 10/14/24 11:37 10/14/24 11:37 10/14/24 11:37 Constitutional no acute distress and cooperative Routine HEENT Exam Head: Present normocephalic and atraumatic Eye: Absent conjunctivae pink ENT: Present mucous membranes moist Routine Respiratory Exam Present CTA bilaterally and normal respiratory effort Routine Cardiovascular Exam Present RRR Routine Abdominal Exam Present soft (Gravid); Absent tenderness Routine Rectal Exam Patient deferred: visual exam Routine Exam Patient deferred: external exam Routine Extremities Exam Present full ROM; Absent edema or calf tenderness Routine Neurological Exam Present alert, moving all extremities and normal speech Routine Psychiatric Exam Present normal affect and cooperative OB - Results Labs Labs: Short CBC 10/14/24 Range/Units 11:13 WBC 10.7 (4.8-10.8) K/mm3 Hgb 10.6 L (12.2-16.2) g/dL Hct 31.2 L (37.0-47.0) % Plt Count 209 (142-424) K/mm3 Urine 10/14/24 Range/Units 11:41 Urine Color Yellow (Yellow) Urine Appearance Clear (Clear) Urine pH 6.5 (5.0-8.5) Ur Specific [place] 1.010 (1.005-1.030) Urine Protein Negative (Negative) Urine Glucose (UA) Negative (Negative) OB - A/P Antepartum (1) Pre-eclampsia affecting , antepartum: Status: Acute (2) Tobacco use affecting , antepartum: Status: Acute (3) Depression affecting : Status: Acute (4) Positive urine drug screen: Problem details: THC Status: Acute (5) Hx of section: Problem details: x 2 Status: Acute Additional Plan Additional Information:: Admit to L&D for preeclampsia BP mild range on L&D. Will continue to monitor closely. Repeat [facility] labs tomorrow Plan for inpatient management unless situation changes. Discussed transfer to tertiary care facility if she desires. She would like to stay at [facility] at this time. Celestone q 24 hours x 2 NST q 8 hours if feeling well and baby is reactive, will monitor continuously otherwise Regular diet Tylenol 1000mg q 6 hours PRN headache or pain SCDs for DVT prophylaxis Plan for repeat at 36w1d, 09/18/24 unless indicated sooner
[2024-10-14] MEDS: ACETAMINOPHEN 325MG/10.15ML UDC 1000 MG PO (20:51)
[2024-10-14] MEDS: SERTRALINE 50MG TABLET 150 MG PO (20:58)
[2024-10-14] MEDS: ONDANSETRON 4MG/2ML VIAL 4 MG IV (22:48)
[2024-10-14 23:58] LABS: RPR W/RFX Titers Nonreactive (Nonreactive)
[2024-10-15] VITALS (11 sets, daily range): BP systolic 121–149; BP diastolic 71–88; PULSE 75–85; RESP 16; TEMP 36.7–36.8; O2SAT 98
[2024-10-15 05:51] LABS: Basophils % 0.1 % (0.1-2.0); Hematocrit 26.8 % (37.0-47.0); Lymphocytes % 11.5 % (10-50); Mean Corpuscular HGB Conc 34.3 g/dL (31.8-35.4); Mean Corpuscular Hemoglobin 30.2 pg (27.0-31.2); Mean Corpuscular Volume 87.9 fl (81-99); Mean Platelet Volume 11.4 fl (7.4-10.4); Monocytes # 0.9 K/mm3 (0.1-1.0); Monocytes % 5.2 % (1.7-9.3); Neutrophils # 14.3 K/mm3 (1.8-7.8); Neutrophils % 81.8 % (37.0-80.0); Platelet Count 189 K/mm3 (142-424); Red Blood Count 3.05 M/mm3 (4.20-5.40); Red Cell Distribution Width 11.8 % (11.5-17.5); White Blood Count 17.4 K/mm3 (4.8-10.8)
[2024-10-15 05:54] LABS: MANUAL DIFFERENTIAL MANUAL DIFFERENTIAL (MANUAL DIFF)
[2024-10-15 05:57] LABS: Albumin Level 3.2 g/dl (3.5-5.0); Chloride 107 mmol/L (98-107); Potassium 3.6 mmoL/L (3.5-5.1); Sodium 136 mmol/L (136-145)
[2024-10-15 06:00] LABS: Alanine Aminotransferase 21 U/L (12-78); Albumin/Globulin Ratio 1.2 (1.1-1.8); Alkaline Phosphatase 119 U/L (38-126); Anion Gap 11.6 mEq/L (5-15); Aspartate Amino Transferase 23 U/L (14-36); Bilirubin,Total 0.4 mg/dl (0.2-1.3); Blood Urea Nitrogen 6 mg/dl (7-17); Calcium 8.6 mg/dl (8.4-10.2); Carbon Dioxide 21 mmol/L (22.0-30.0); Creatinine Clearance Estimated 222 mL/min (50-200); Estimated Glomerular Filt Rate 190 ml/min (>60); GFR (African American) 230 ML/MIN (>60); Globulin 2.6 g/dL (1.3-3.2); Glucose 130 mg/dl (74-100); Total Protein,Serum 5.8 g/dl (6.3-8.2)
[2024-10-15 06:44] LABS: Activated Partial Thrombo Time 22.5 seconds (22.5-28.5); Fibrinogen 414 mg/dL (208.1-352.0); INR 0.82 (0.9-1.1); Prothrombin Time 9.2 seconds (9.2-12.1)
[2024-10-15] MEDS: ONDANSETRON 4MG/2ML VIAL 4 MG IV (08:55)
--- NOTE | 2024-10-15 09:28 | P.PN_ITS ---
Subjective *Date: 10/15/24 *Time: 09:28 Interval history: Celeste is resting comfortably in bed this morning. She reports the start of a headache last night that resolved with medication. She reports nausea followed by vomiting this morning. She received medication and is trying to eat some breakfast. Baby is active. Still having pelvic pressure but denies contractions and vaginal bleeding. She denies vision changes and lower extremity swelling. No calf pain. Medical Exam Vital signs and Labs for Last 24 Hours: Vital Signs Temp Pulse Resp BP Pulse Ox O2 Del Method 10/14/24 11:37 98.0 F 71 18 136/91 H 100 Room Air Laboratory Results - last 24 hr 10/14/24 11:13: WBC 10.7, RBC 3.51 L, Hgb 10.6 L, Hct 31.2 L, MCV 88.9, MCH 30.2, MCHC 34.0, RDW 12.0, Plt Count 209, MPV 11.8 H, Neut % (Auto) 69.8, Lymph % (Auto) 24.0, [place] % (Auto) 4.6, Eos % (Auto) 0.7, Baso % (Auto) 0.4, Neut # (Auto) 7.5, Lymph # (Auto) 2.6, [place] # (Auto) 0.5, Eos # (Auto) 0.1, Baso # (Auto) 0.0, RPR w/Rflx to Titer Nonreactive, Blood Type A Positive, Antibody Screen Negative 10/14/24 11:15: Urine Opiates Screen Negative, Urine Methadone Screen Negative, Ur Barbituates Screen Negative, Ur Phencyclidine Scrn Negative, Ur Amphetamines Screen Negative, U Benzodiazepines Scrn Negative, Urine Cocaine Screen Negative, U Marijuana (THC) Screen Negative 10/14/24 11:41: Urine Color Yellow, Urine Appearance Clear, Urine pH 6.5, Ur S pecific [place] 1.010, Urine Protein Negative, Urine Glucose (UA) Negative, Urine Ketones Negative, Urine Blood Negative, Urine Nitrate Negative, Urine Bilirubin Negative, Urine Urobilinogen 0.2, Ur Leukocyte Esterase Negative, Urine RBC Occasional, Urine WBC 3-5, Ur Squamous Epith Cells 5-10, Urine Bacteria Trace 10/15/24 05:44: WBC 17.4 H D, RBC 3.05 L, Hct 26.8 L, MCV 87.9, MCH 30.2, MCHC 34.3, RDW 11.8, Plt Count 189, MPV 11.4 H, Neut % (Auto) 81.8 H, Lymph % (Auto) 11.5, [place] % (Auto) 5.2, Eos % (Auto) 0.0 L, Baso % (Auto) 0.1, Neut # (Auto) 14.3 H, Lymph # (Auto) 2.0, [place] # (Auto) 0.9, Eos # (Auto) 0.0, Baso # (Auto) 0.0, PT 9.2, INR 0.82 L, APTT 22.5, Fibrinogen 414 H, Sodium 136, Potassium 3.6, Chloride 107, Carbon Dioxide 21 L, Anion Gap 11.6, BUN 6 L D, Creatinine 0.40 L, Estimated Creat Clear 222, Estimated GFR 190, Est GFR ( Amer) 230, Glucose 130 H, Calcium 8.6, Total Bilirubin 0.4, AST 23, ALT 21 D, Alkaline Phosphatase 119, Total Protein 5.8 L, Albumin 3.2 L D, Globulin 2.6, Albumin/Globulin Ratio 1.2 I & O for Labs for Last 24 Hours: Intake & Output 10/12/24 10/13/24 10/14/24 10/15/24 23:59 23:59 23:59 23:59 Weight 148 lb Head: Present atraumatic and normocephalic ENT: Present normal exam and mucous membranes moist Neck: Present normal inspection and full ROM Respiratory: Present CTA bilaterally and normal respiratory effort Cardiac: Present Reg Rate and Rhythm GI: Present soft (Gravid); Absent tenderness Rectal (female): Present deferred (female): Present deferred Extremities: Present normal inspection and full ROM; Absent edema or calf tenderness Neuro: Present alert, awake and moves all extremities Assessment and Plan *Assessment and plan (1) Pre-eclampsia affecting , antepartum: Status: Acute Category: Medical Code(s): O14.90 - Unspecified pre-eclampsia, unspecified trimester (2) Tobacco use affecting , antepartum: Status: Acute Category: Medical Code(s): O99.330 - Smoking (tobacco) complicating , unspecified trimester (3) Depression affecting : Status: Acute Category: Medical Code(s): O99.340 - Other mental disorders complicating , unspecified trimester; F32.A - Depression, unspecified (4) Hx of section: Problem Comment: x 2 Status: Acute Category: Surgical Code(s): Z98.891 - History of uterine scar from previous surgery (5) Positive urine drug screen: Problem Comment: THC Status: Acute Category: Medical Code(s): R82.5 - Elevated urine levels of drugs, medicaments and biological substances Plan Continue close monitoring BP has been labile with normotensive and mild range pressures. The highest BP in the past 24 hours was 157/93. Headache relieved with Tylenol last night Continue NSTs q 8 hours unless indicated sooner Regular diet SCDs for DVT prophylaxis Second dose of Celestone today Plan for repeat 10/19/24 unless indicated sooner
[2024-10-15 10:02] LABS: Lymphocytes % 12 % (10-50); Monocytes % 4 % (2-9); Neutrophils % 84 % (42-76); Platelet Estimate Normal; RBC Morphology Normal; Total Cells Counted 25
[2024-10-15] MEDS: BETAMETHASONE ACET/PHOS 6MG/ML 5ML MDV 12 MG IM (10:37)
[2024-10-15] MEDS: ACETAMINOPHEN 500MG TAB 1000 MG PO (13:18)
[2024-10-15 14:37] LABS: Hemoglobin 9.2 g/dL (12.2-16.2)
[2024-10-15 17:42] LABS: Uric Acid 3.7 mg/dl (2.5-6.2)
[2024-10-15] MEDS: SERTRALINE 50MG TABLET 150 MG PO (21:04)
[2024-10-16 00:33] VITALS: BP 136/79; PULSE 75
[2024-10-16] MEDS: ONDANSETRON 4MG/2ML VIAL 4 MG IV (00:50)
[2024-10-16 04:28] VITALS: BP 146/76; PULSE 62; RESP 16; TEMP 36.6; O2SAT 98
--- NOTE | 2024-10-16 07:15 | PC.NURSE ---
pt voided, first urine dumped, 24 hour urine to start at next void.
[2024-10-16 07:23] VITALS: BP 155/83; PULSE 71; RESP 16; TEMP 36.6; O2SAT 97
--- NOTE | 2024-10-16 08:00 | US_ITS ---
PROCEDURE: US OB BPP W/FET-MAT S/D CLINICAL INDICATION: pre-eclampsia COMPARISON: US US OB /MATERNAL DETAIL from 06/30/2024 US US OB >= 14 WEEKS FETUS from 08/28/2024 US US OB BIOPHYSICAL PROFILE from 09/28/2024 FINDINGS: Transabdominal sonographic images of the uterus were obtained. From her established due date she is 35weeks 5days. The following parameters are obtained: Viable Fetus in the cephalic presentation with an anterior laterally wrapped placenta grade 2-3. Placental Johnson is seen. The cervix measures 2.89 cm. Measurements: heart Rate = 128bpm Amniotic fluid index: 11.55cm, MVP 3.67 cm Qualitative AFV:2 Breathing movements: 0 Gross Body Movements: 2 Tone: 2 Biophysical profile score: 6 Doppler evaluation of the umbilical artery: SD ratio: 2.47-2.70 Resistive index: 0.6 No obvious anomalies evident.Kidneys, bladder, four-chamber heart, three-vessel cord appear normal. IMPRESSION: 1. Viable fetus in the cephalic presentation with an anterior laterally wrapped placenta grade 2-3. A placental Johnson is seen. 2. Biophysical profile is 6/8 with no breathing movement seen today. Fetus was seen to be active. Suggest repeat scan tomorrow. 3. SD ratio is normal 2.47-2.70 4. Limited anatomical scan appears normal. Dictated by: Pedro Luis Ryan MD 10/16/2024 10:07 Pedro Luis Ryan MD in [facility] 10/16/2024 10:07
--- NOTE | 2024-10-16 08:46 | PC.NURSE ---
pt going down to radiology for u/s at this time.
--- NOTE | 2024-10-16 09:24 | PC.NURSE ---
pt returned from radiology at this time.
[2024-10-16 10:35] LABS: Basophils % 0.1 % (0.1-2.0); Eosinophils % 0.1 % (0.1-12.0); Hematocrit 26.7 % (37.0-47.0); Hemoglobin 9.1 g/dL (12.2-16.2); Lymphocytes # 2.6 K/mm3 (0.7-4.5); Lymphocytes % 17.8 % (10-50); Mean Corpuscular HGB Conc 34.1 g/dL (31.8-35.4); Mean Corpuscular Hemoglobin 30.3 pg (27.0-31.2); Mean Platelet Volume 11.8 fl (7.4-10.4); Monocytes # 0.9 K/mm3 (0.1-1.0); Monocytes % 6.1 % (1.7-9.3); Neutrophils # 10.8 K/mm3 (1.8-7.8); Neutrophils % 74.5 % (37.0-80.0); Platelet Count 191 K/mm3 (142-424); Red Cell Distribution Width 12.2 % (11.5-17.5); White Blood Count 14.5 K/mm3 (4.8-10.8)
[2024-10-16 10:48] VITALS: BP 147/81; PULSE 65
[2024-10-16 10:50] LABS: Activated Partial Thrombo Time 21.6 seconds (22.5-28.5); Fibrinogen 260 mg/dL (208.1-352.0)
[2024-10-16 10:51] LABS: Albumin Level 3.3 g/dl (3.5-5.0); Chloride 104 mmol/L (98-107); Potassium 3.7 mmoL/L (3.5-5.1); Sodium 134 mmol/L (136-145)
[2024-10-16 10:53] LABS: Blood Urea Nitrogen 7 mg/dl (7-17); Creatinine Clearance Estimated 178 mL/min (50-200); Estimated Glomerular Filt Rate 147 ml/min (>60); GFR (African American) 178 ML/MIN (>60)
[2024-10-16 10:54] LABS: Alanine Aminotransferase 19 U/L (12-78); Albumin/Globulin Ratio 1.3 (1.1-1.8); Alkaline Phosphatase 117 U/L (38-126); Anion Gap 10.7 mEq/L (5-15); Aspartate Amino Transferase 27 U/L (14-36); Bilirubin,Total 0.2 mg/dl (0.2-1.3); Calcium 8.4 mg/dl (8.4-10.2); Carbon Dioxide 23 mmol/L (22.0-30.0); Globulin 2.5 g/dL (1.3-3.2); Glucose 107 mg/dl (74-100); Total Protein,Serum 5.8 g/dl (6.3-8.2)
--- NOTE | 2024-10-16 11:00 | PC.NURSE ---
lab called stating pt's uric acid and LDH is currently running but might take a bit to return.
[2024-10-16 11:10] LABS: Lactate Dehydrogenase 153 U/L (313-618); Uric Acid 3.1 mg/dl (2.5-6.2)
--- NOTE | 2024-10-16 13:32 | PC.NURSE ---
called and spoke with Maude in U/S regarding Dr. Salas wanting to repeat pt's BPP this evening.
--- NOTE | 2024-10-16 13:44 | EXP.PN ---
Subjective *Date: 10/16/24 *Time: 13:44 Interval history: Celeste Willis is a 28 yo at 35w5d, based on last menstrual period consistent with 5wk ultrasound, admitted to [facility] L&D for preeclampsia with labile BP and headaches. -Overnight her BP has been controlled without medications. She denies headaches or vision changes. Records from her previous deliveries were requested and reviewed from Psychiatric. She delivered her first child, male at 36 weeks and 4 days gestation. That was complicated by intrauterine growth restriction at the 10th percentile, nonreassuring testing, single umbilical artery, and finally nonreassuring heart rate tracing which ultimately led to urgent delivery. At time of infant assessment a large PDA was detected and no neurological activity appreciated. The was immediately intubated and ultimately the parents made the difficult decision to withdrawal life support 4days later. Unable to obtain the records on her second delivery of her daughter at this time but we are currently working on that. Patient reports that she was supposed to deliver at 39 weeks, but again delivered at 36 weeks for nonreassuring heart tones. Chart review shows that growth of this infant is in the 12th percentile. Today's biophysical profile is significant for a 8/10, no practice breathing. Significant medical history from chart review includes: She has had positive THC urine drug screen. She has past medical history of anxiety and depression. She is taking Sertraline 150 mg PO daily. Exam Data for Last 24 hours Vital signs and Labs for Last 24 Hours: Temp Pulse Resp BP Pulse Ox O2 Del Method 97.9 F 65 16 147/81 H 97 Room Air 10/16/24 07:23 10/16/24 10:48 10/16/24 07:23 10/16/24 10:48 10/16/24 07:23 10/16/24 07:23 Laboratory Results - last 24 hr 10/15/24 05:44: Hgb 9.2 L D, Uric Acid 3.7 10/16/24 10:28: WBC 14.5 H, RBC 3.00 L, Hgb 9.1 L, Hct 26.7 L, MCV 89.0, MCH 30.3, MCHC 34.1, RDW 12.2, Plt Count 191, MPV 11.8 H, Neut % (Auto) 74.5, Lymph % (Auto) 17.8, [place] % (Auto) 6.1, Eos % (Auto) 0.1, Baso % (Auto) 0.1, Neut # (Auto) 10.8 H, Lymph # (Auto) 2.6, [place] # (Auto) 0.9, Eos # (Auto) 0.0, Baso # (Auto) 0.0, PT 9.0 L, INR 0.80 L, APTT 21.6 L, Fibrinogen 260, Sodium 134 L, Potassium 3.7, Chloride 104, Carbon Dioxide 23, Anion Gap 10.7, BUN 7, Creatinine 0.50 L D, Estimated Creat Clear 178, Estimated GFR 147, Est GFR ( Amer) 178 D, Glucose 107 H, Uric Acid 3.1, Calcium 8.4, Total Bilirubin 0.2, AST 27, ALT 19, Alkaline Phosphatase 117, Lactate Dehydrogenase 153 L, Total Protein 5.8 L, Albumin 3.3 L, Globulin 2.5, Albumin/Globulin Ratio 1.3 I & O for Last 24 hours: Intake & Output 10/13/24 10/14/24 10/15/24 10/16/24 23:59 23:59 23:59 23:59 Weight 148 lb Assessment and Plan *Assessment and plan (1) Pre-eclampsia affecting , antepartum: Status: Acute Category: Medical Code(s): O14.90 - Unspecified pre-eclampsia, unspecified trimester (2) Heartburn during : Status: Acute Qualifiers: Trimester: unspecified trimester Qualified Code(s): O26.899 - Other specified related conditions, unspecified trimester; R12 - Heartburn Category: Medical Code(s): O26.899 - Other specified related conditions, unspecified trimester; R12 - Heartburn (3) Positive urine drug screen: Problem Comment: THC Status: Acute Category: Medical Code(s): R82.5 - Elevated urine levels of drugs, medicaments and biological substances (4) LGSIL on Pap smear of cervix: Status: Acute Category: Medical Code(s): R87.612 - Low grade squamous intraepithelial lesion on cytologic smear of cervix (LGSIL) (5) Tobacco use affecting , antepartum: Status: Acute Category: Medical Code(s): O99.330 - Smoking (tobacco) complicating , unspecified trimester (6) Depression affecting : Status: Acute Category: Medical Code(s): O99.340 - Other mental disorders complicating , unspecified trimester; F32.A - Depression, unspecified (7) Hx of section: Problem Comment: x 2 Status: Acute Category: Surgical Code(s): Z98.891 - History of uterine scar from previous surgery (8) History of miscarriage, currently : Status: Acute Category: Medical Code(s): O09.299 - Supervision of with other poor reproductive or obstetric history, unspecified trimester (9) Prior poor obstetrical history, antepartum: Status: Acute Category: Medical Code(s): O09.299 - Supervision of with other poor reproductive or obstetric history, unspecified trimester Plan Repeat [facility] labs completed this morning BPP was 6 out of 8, reactive NST giving testing 04/04 Lab review: Leukocytosis noted suspect this is secondary to steroid administration. Anemia noted will continue to follow-up closely. Creatinine currently stable continue to follow LDH appropriate at 153 Uric acid stable Urine protein to creatinine ratio elevated, 24-hour urine collection pending Repeat BPP and growth this afternoon Initiate continuous monitoring Discussed the possibility of delivery in the morning based on findings. Reviewed the morbidity and mortality associated with delivery. Discussed the need for NICU resuscitation and possible transfer of the
[2024-10-16 16:14] VITALS: BP 130/70; PULSE 75; RESP 16; TEMP 36.8; O2SAT 98
--- NOTE | 2024-10-16 16:59 | PC.NURSE ---
pt going to u/s at this time.
--- NOTE | 2024-10-16 17:00 | US_ITS ---
PROCEDURE INFORMATION: Exam: US , Limited Exam date and time: 10/16/2024 4:51 PM Age: 28 years old Clinical indication: Abnormal findings; Abnormal ultrasonic screening; Third trimester (>=28 weeks 0 days); ; Fu 8 bpp this am; Additional info: 04/04 on 10/16/2024 TECHNIQUE: Imaging protocol: Real-time ultrasound of the maternal uterus with image documentation. Exam focused on the clinical indication. COMPARISON: US OB BPP W/FET-MAT S/D 10/16/2024 8:52 AM FINDINGS: Gestation: Single live intrauterine gestation. heart rate: heart rate of 135 beats per minute. presentation and position: Cephalic. Placenta: Posterior. Possible accessory lobe. No definite abruption. Amniotic fluid (Qualitative): HIPOLITO = 9.8 cm. BIOMETRY: Gestational age (AUA): Estimated gestational age of 34 weeks 0 days by measurements. Estimated due date (AUA): 11/27/2024 by ultrasound. MATERNAL: Cervix: No cervical dilatation or effacement. IMPRESSION: Single live intrauterine gestation. PROCEDURE INFORMATION: Exam: US Biophysical Profile Without Non-Stress Test Exam date and time: 10/16/2024 4:51 PM Age: 28 years old Clinical indication: Abnormal findings; Abnormal ultrasonic screening; Third trimester (>=28 weeks 0 days); ; Fu 04/04 bpp this am; Additional info: 04/04 on 10/16/2024 TECHNIQUE: Imaging protocol: US biophysical profile without non-stress testing. COMPARISON: US OB BPP W/FET-MAT S/D 10/16/2024 8:52 AM FINDINGS: heart rate: 135 bpm Amniotic fluid index: HIPOLITO is 9.75 cm. BIOPHYSICAL PROFILE: breathing (BPP): 2 /2 gross body movement (BPP): 2 /2 tone (BPP): 2 /2 Amniotic fluid (BPP): 2 /2 Biophysical profile score (BPP): 8 /8 IMPRESSION: Biophysical profile score is 8 out of 8.
--- NOTE | 2024-10-16 18:01 | PC.NURSE ---
pt returned from radiology at this time.
--- NOTE | 2024-10-16 18:40 | PC.NURSE ---
Dr. Salas to see patient and update on plan of care. pt to have CHD bath prior to, gatorade [address] Garg notified of surgery. Dr. Salas reached out to Dr. Olmos. supervisor assembly department notified. Surgery time 0930 at this time.
[2024-10-16 20:32] VITALS: BP 138/72; PULSE 73; RESP 18; TEMP 36.9; O2SAT 98
[2024-10-16] MEDS: SERTRALINE 50MG TABLET 150 MG PO (21:25)
[2024-10-17] VITALS (23 sets, daily range): BP systolic 116–159; BP diastolic 75–96; PULSE 61–92; RESP 12–20; TEMP 36.4–36.7; O2SAT 97–100
[2024-10-17] MEDS: LACTATED RINGERS 1000ML 2,000 ML 999 ML IV (08:52)
[2024-10-17 09:21] LABS: Creatinine,Urine Random 30 mg/dL (Not Estab.)
[2024-10-17 09:22] LABS: Total Protein 24 Hour,Urine 810 mg/24 hr (40-90); Total Volume,Urine 4500 mL (600-1600)
[2024-10-17] MEDS: CEFAZOLIN SODIUM 2 GM in 0.9 % SODIUM CHLORIDE 100 ML IV (09:30)
[2024-10-17 10:03] LABS: Cord Blood PH 7.38 (7.35-7.45)
--- NOTE | 2024-10-17 10:38 | EXP.LABOR.NO ---
Labor Note Subjective: Date: 10/17/24 Time: 10:38 Comment:: Celeste is feeling well. Reports persistnet headaches, states they arent as bad as they were but they are still present. She continues to have episodes of vision changes. Over night she had blood pressure elevations to 150/90s and they were persistent this morning in that range. Objective: NST:: Reactive Membranes: intact Fetus: Monitoring?: Yes monitoring type:: External Plan: Plan for ?: Yes Comment:: US significant for a BPP 6/8 (breathing) follow up US showed IUGR in the 9th percentile. Additionally with her elevated BP and severe symptoms she was diagnosed with preeclampsia. Given her OB history decison wasmade to proceed with delivery. Pt was counseled on R/B/A and desired to proceed with CD. We specifically discussed the risks of NICU transfer and pt consented to proceed. Reviewed the risks benefits and alternatives to Repeat delivery. Discussed the risk of bleeding, infection injury to the surrounding structures. Patient consented to blood transfusion to medically necessary. Reviewed the rare risk of hysterectomy if bleeding is unable to be controlled. Discussed risk of infection, the patient has no allergies and will receive 2 g of Ancef preoperatively. Reviewed the risk of injury to surrounding structures including the bowel, bladder, reproductive organs, and neurovascular bundles. Patient voiced understanding. Discussed the increased risk with prior surgery and scarring. Patient and significant other voiced understanding desire to proceed
--- NOTE | 2024-10-17 10:43 | P.PNANES_ITS ---
[facility] Disclaimer: The information contained in this section may have been updated after the patient was seen, as this information can be updated by other users. Medical History (Updated 10/16/24 @ 14:00 by Celeste Salas DO) Pre-eclampsia affecting , antepartum Heartburn during Back pain LGSIL on Pap smear of cervix Tobacco use affecting , antepartum Nausea and vomiting in Depression affecting History of miscarriage, currently History of depression History of anxiety Spontaneous Surgical History Hx of section Hx of cholecystectomy Family History Other Alcoholism Asthma Cancer Diabetes FHx: mental illness Hypertension Substance abuse Social History (Updated 10/14/24 @ 11:49 by Merrill Spangler RN) Smoking Status: Current every day smoker tobacco type: e-cigarettes alcohol intake: never substance use type: marijuana current occupational status: unemployed Travel in the last 8 weeks: None [facility] Anesthesia Checklist Patient Identification Patient Identification: Verbal (Name & ) Structural Data Admitted From: Inpatient Planned Operative Procedure/s: c section Consent for Planned Operative Procedure(s) Verified: Yes NPO Status Verified Time NPO: 00:00 Airway Assessment Mallampati Score:: Class II C-Spine Mobility Assessed: Yes TMJ Mobility Assessed: Yes Dentition: Good Dentition Neurological Assessment Level of Consciousness: Awake, Alert and Appropriate Anesthesia Plan Anesthesia Risk discussed: Yes Anesthesia Plan: Verified ASA Class: II Anesthesia Type: Spinal
--- NOTE | 2024-10-17 10:43 | EXP.OP.NOTE ---
Date of procedure: 10/17/24 Pre-op Diagnosis:: 1. 35 weeks 6days gestation, [place] 2. Intrauterine growth restriction 3. Preeclampsia 4. Poor obstetric history 5. Nonreassuring testing 6. Previous delivery Post-op Diagnosis:: 1. 35 weeks 6days gestation, [place] 2. Intrauterine growth restriction 3. Preeclampsia 4. Poor obstetric history 5. Nonreassuring testing 6. Previous delivery Procedure performed:: Repeat Delivery Surgeon:: Celeste Salas DO Interlocking And Signal Mechanic(s):: Chris lOmos MD HOMOEOPATH:: Garcia Kruger Anesthesia: spinal Estimated blood loss (mL): 400 Clinical Note:: Celeste Willis is a 28yo at 35w6d, based on last menstrual period consistent with 5wk ultrasound, admitted to [facility] L&D for monitoring secondary to preeclampsia and a history of poor obstetrical outcomes. On admission steroids were adminstered for FLM. Yesterday the fetus was diagnosed with IUGR and had nonreassuring testing. Overnight the patient had elevations in her BP with persistent headache. Decision was made to proceed with delivery. She will receive 24 hours of magnesium . We will monitor her inpatient for a minimum of 3 days . Operative findings:: 1. Live viable female infant: Estela. Weight: 5pounds 5ounces. Apgars 7 and 9 at 1 and 5 minutes respectively 2. Normal-appearing fallopian tubes and ovaries bilaterally 3. Cord gases collected by RN unsure if it is arterial or venous: 7.38 Operative note:: Medications: 2 g of Ancef Summary: Procedure explained in its entirety. The patient was counseled on the risks and benefits of section including bleeding, vascular injury, infection, and injury to the surrounding structures. Hemorrhage requiring life saving blood transfusion resulting in blood born viral infection or allergic reaction was explained and the patient consented to blood transfusion. Possible need for further operative measures prolonging recovery time and hospitalization reviewed to include hysterectomy. Procedure explained in its entirety and patient had no further questions. Consented to procedure. The patient was taken back to the operating room where adequate spinal anesthesia was obtained. Pneumatic compression stockings applied to lower extremities. Ancef 2g was given for infection prophylaxis. She was placed in the dorsal supine position Urinary catheter was placed and found to be draining clear urine. The patient was prepped and draped in sterile fashion. Anesthesia was tested and and found to be adequate. A Pfannenstiel skin incision was made with the scalpel. Subcutaneous bleeding vessels were cauterized with the bovie. The incision was taken down to the fascia with the sharply. There was significant scarring of the very minimal subcutaneous fat to the fascia. The fascia was knicked in the midline and sharply extended laterally. The superior aspect of the fascia was grasped with Jose A clamps and the rectus muscle was taken down with the Bovie. The rectus muscle was sharply dissected from the midline with Mayodianelys. This process was repeated inferiorly. The rectus muscles were in the midline, peritoneum was identified and entered bluntly. Severo O retractor was placed and the bladder was noted to be out of the operative field. A bladder flap was created with Metzenbaum scissors and Indonesian pickups. The uterus was noted to be tilted with the left side of the uterus being the primarily presentation. The lower uterine segment was easily identified, sharply incised, and entered bluntly with the surgeon's index finger. Incision was then extended in a superior and inferior fashion by blunt separation. Membranes were ruptured revealing clear fluid. The fetus was in cephalic presentation. The head was carefully elevated out of the pelvis. Fundal pressure was applied when head was brought into incision. The infants head was delivered without difficulty. The shoulder and body followed without complication. Delivery occurred at 0955. The mouth and nose were suctioned with a bulb. The umbilical cord was clamped and cut. was taken to warmer for evaluation by the service parts driver. Cord blood was collected. cord gasses were collected. The placenta was delivered via fundal massage and found to be normal and intact. IV Pitocin was initiated. Inside of the uterus was gently cleared of blood and clots with lap sponge. The hysterotomy was closed with #1 Vicryl in a running locked fashion. There is a small amount of bleeding noted at the left apex of the hysterotomy where the uterus was slightly tilted. This area was closed to the uterine vessels. It was carefully suture-ligated and a second imbricating layer with #1 Vicryl was placed for hemostasis. The lower uterine segment was visualized and noted to be hemostatic. The ovaries and tubes were found to be normal. The posterior aspect of the uterus was cleared of blood clot with a damp lap sponge. The gutters were inspected bilaterally and cleared of blood and clots with lap sponges. The uterine incision was reinspected and hemostasis noted. A layer of Surgicel powder was placed over the hysterotomy for added prophylaxis. Severo O retractor was removed. Abdomen was again examined and hemostasis was noted. The peritoneum was reapproximated using a 2-0 Monocryl in a nonlocked running fashion. Rectus muscles were thoroughly examined and hemostasis was noted. The fascia was closed in a running nonlocked fashion using 0 Vicryl. Fascia was noted as not having gaps or defects. The subcutaneous fat was closed with 2-0 Monocryl interrupted sutures x5. Skin was closed with 4-0 Monocryl suture in a subcuticular fashion. Patient tolerated the procedure well and all counts were correct x3, per nursing. Patient will receive tap blocks and then be transported to the OB PACU for recovery and bonding. Condition: stable Disposition: PACU Specimens:: Live viable female Placenta Cord gases Cord blood Complications:: None
--- NOTE | 2024-10-17 10:44 | P.PNANES_ITS ---
[facility] Anesthesia Record Part I Anesthesia Record I Intake, IV Amount: 1,200 Hydration: Adequate Estimated blood loss (mL): 400 Urine output (mL): 300 Blood Pressure: 129/77 SaO2: 97 Pulse Rate: 65 Airway Patency: Patent Respiratory Rate: 12 Temperature: 98 F Patient is:: Awake and Stable Stable to PACU at:: 10:40
--- NOTE | 2024-10-17 11:18 | SUR.OPER ---
0955- time of 1002- cord pH called by RT; 7.37 1040- patient arrived to OB room for PACU period. VSS, scant bleeding vaginally, dressing CDI, no complaints of pain. 1110- report given to Chelsi Spangler RN. VSS, still scant bleeding vaginally, dressing has serosanguinous drainage noted, uterus is firm at umbilicus x4 checks. ryan emptied, 200 urine out total. No complaints of pain noted from patient. Skin to skin initiated at this time with mom and baby.
[2024-10-17] MEDS: OXYTOCIN/RINGERS LACTATE 30 UNITS/500 ML BAG 40 UNITS IV (11:24)
[2024-10-17 11:25] LABS: Microscopic,Cath URINE MICROSCOPIC (MICROSCOPIC)
[2024-10-17] MEDS: LACTATED RINGERS 1000ML 1,000 ML 125 ML IV (11:25)
[2024-10-17 11:59] LABS: Magnesium 1.4 mg/dl (1.6-2.3)
[2024-10-17] MEDS: MAGNESIUM SULFATE IN WATER 4 GM/50 ML PIGGYBACK IV (12:19)
[2024-10-17] MEDS: MAGNESIUM SULFATE IN WATER 20 GM/500 ML IV.SOLN IV ×2 (12:19→22:37)
[2024-10-17 12:22] LABS: Appearance,Urine/Cath CLEAR (Clear); Bilirubin,Cath Negative (Negative); Blood, Urine/Cath Negative (Negative); Color,Urine/Cath YELLOW (Yellow); Glucose,Urine/Cath (UA) Negative (Negative); Ketones,Urine/Cath Negative (Negative); Leukocyte Esterase,Cath Negative (Negative); Nitrate,Cath Negative (Negative); PH,Urine/Cath 7.5 (5.0-8.5); Protein,Urine/Cath Negative (Negative); Specific Gravity, Urine/Cath 1.015 (1.005-1.030); Urobilinogen,Cath 0.2 EU/dl (0.2)
[2024-10-17 12:34] LABS: Squamous Epithelial Ur./Cath Occasional #/hpf (0-5)
[2024-10-17] MEDS: ACETAMINOPHEN 500MG TAB 1000 MG PO ×2 (12:49→18:51)
[2024-10-17] MEDS: KETOROLAC 30MG/ML VIAL 30 MG IV ×2 (12:50→18:51)
[2024-10-17] MEDS: OXYCODONE 5MG IMMEDIATE RELEASE TABLET 5 MG PO (14:47)
[2024-10-17 19:37] LABS: Magnesium 4.6 mg/dl (1.6-2.3)
[2024-10-17] MEDS: SERTRALINE 50MG TABLET 150 MG PO (20:54)
[2024-10-18] VITALS (16 sets, daily range): BP systolic 117–163; BP diastolic 67–98; PULSE 70–100; RESP 16–18; TEMP 36.6–36.9; O2SAT 98–100
[2024-10-18] MEDS: ACETAMINOPHEN 500MG TAB 1000 MG PO ×4 (00:36→18:01)
[2024-10-18] MEDS: KETOROLAC 30MG/ML VIAL 30 MG IV ×3 (00:37→13:04)
[2024-10-18] MEDS: LACTATED RINGERS 1000ML 1,000 ML 125 ML IV (01:57)
[2024-10-18] MEDS: LABETALOL 100MG TABLET 100 MG PO ×3 (08:59→20:53)
[2024-10-18] MEDS: MAGNESIUM SULFATE IN WATER 20 GM/500 ML IV.SOLN IV (08:59)
[2024-10-18 09:44] LABS: Basophils % 0.2 % (0.1-2.0); Eosinophils % 0.3 % (0.1-12.0); Hematocrit 26.3 % (37.0-47.0); Hemoglobin 8.9 g/dL (12.2-16.2); Lymphocytes # 2.4 K/mm3 (0.7-4.5); Lymphocytes % 20.5 % (10-50); Mean Corpuscular HGB Conc 33.8 g/dL (31.8-35.4); Mean Corpuscular Hemoglobin 30.1 pg (27.0-31.2); Mean Corpuscular Volume 88.9 fl (81-99); Mean Platelet Volume 11.9 fl (7.4-10.4); Monocytes # 0.7 K/mm3 (0.1-1.0); Monocytes % 5.6 % (1.7-9.3); Neutrophils # 8.4 K/mm3 (1.8-7.8); Neutrophils % 72.8 % (37.0-80.0); Platelet Count 233 K/mm3 (142-424); Red Blood Count 2.96 M/mm3 (4.20-5.40); Red Cell Distribution Width 11.9 % (11.5-17.5); White Blood Count 11.5 K/mm3 (4.8-10.8)
[2024-10-18 09:52] LABS: Albumin Level 2.8 g/dl (3.5-5.0); Chloride 101 mmol/L (98-107); Potassium 3.5 mmoL/L (3.5-5.1); Sodium 133 mmol/L (136-145)
[2024-10-18 09:55] LABS: Alanine Aminotransferase 20 U/L (12-78); Albumin/Globulin Ratio 1.1 (1.1-1.8); Alkaline Phosphatase 112 U/L (38-126); Anion Gap 11.5 mEq/L (5-15); Aspartate Amino Transferase 24 U/L (14-36); Bilirubin,Total 0.4 mg/dl (0.2-1.3); Blood Urea Nitrogen 5 mg/dl (7-17); Calcium 6.3 mg/dl (8.4-10.2); Carbon Dioxide 24 mmol/L (22.0-30.0); Creatinine Clearance Estimated 178 mL/min (50-200); Estimated Glomerular Filt Rate 147 ml/min (>60); GFR (African American) 178 ML/MIN (>60); Globulin 2.5 g/dL (1.3-3.2); Glucose 147 mg/dl (74-100); Total Protein,Serum 5.3 g/dl (6.3-8.2)
[2024-10-18 10:12] LABS: Lactate Dehydrogenase 189 U/L (313-618); Uric Acid 3.5 mg/dl (2.5-6.2)
--- NOTE | 2024-10-18 13:48 | EXP.PN ---
Subjective *Date: 10/18/24 *Time: 13:48 Interval history: Celeste Cervantes is a 28-year-old postop day #1 from a repeat low-transverse delivery at 35 weeks and 6 days gestation. She is doing well. She received 24 hours of magnesium. Reports that her headache and vision changes are improved. -Reports pain is well-controlled -Reports she is tolerating p.o. without nausea or vomiting. -Ambulating, voiding difficulty or dysuria. Denies chest pain shortness of breath or pain in her legs. No further complaints at this time. Exam Data for Last 24 hours Vital signs and Labs for Last 24 Hours: Temp Pulse Resp BP Pulse Ox O2 Del Method 98.2 F 94 H 17 137/67 99 Room Air 10/18/24 08:49 10/18/24 12:49 10/18/24 12:49 10/18/24 12:49 10/18/24 12:49 10/18/24 12:49 Laboratory Results - last 24 hr 10/17/24 19:20: Magnesium 4.6 H D 10/18/24 09:20: WBC 11.5 H, RBC 2.96 L, Hgb 8.9 L, Hct 26.3 L, MCV 88.9, MCH 30.1, MCHC 33.8, RDW 11.9, Plt Count 233, MPV 11.9 H, Neut % (Auto) 72.8, Lymph % (Auto) 20.5, [place] % (Auto) 5.6, Eos % (Auto) 0.3, Baso % (Auto) 0.2, Neut # (Auto) 8.4 H, Lymph # (Auto) 2.4, [place] # (Auto) 0.7, Eos # (Auto) 0.0, Baso # (Auto) 0.0, Sodium 133 L, Potassium 3.5, Chloride 101, Carbon Dioxide 24, Anion Gap 11.5, BUN 5 L D, Creatinine 0.50 L, Estimated Creat Clear 178, Estimated GFR 147, Est GFR ( Amer) 178, Glucose 147 H, Uric Acid 3.5, Calcium 6.3 L, Total Bilirubin 0.4, AST 24, ALT 20, Alkaline Phosphatase 112, Lactate Dehydrogenase 189 L, Total Protein 5.3 L, Albumin 2.8 L, Globulin 2.5, Albumin/Globulin Ratio 1.1 I & O for Last 24 hours: Intake & Output 10/15/24 10/16/24 10/17/24 10/18/24 23:59 23:59 23:59 23:59 Intake Total 2727 / 2727 2053 Output Total 3010 / 3010 3835 / 3835 Balance -283 / -283 -1781 / -1781 Constitutional Constitutional: no acute distress *Routine HEENT Exam Head: Present normocephalic Eye: Present EOMI and PERRL ENT: Present mucous membranes moist *Routine Neck Exam Neck: Present supple; Absent lymphadenopathy *Routine Respiratory Exam Respiratory: Present CTA bilaterally *Routine Cardiovascular Exam Cardiovascular: Present RRR *Routine Abdominal Exam Abdominal: Present soft and normoactive bowel sounds; Absent tenderness *Routine Extremities Exam Extremities: Absent cyanosis, clubbing or edema *Routine Skin Exam Skin: Present warm; Absent rash Comments: Incision is covered with a dressing. There is no bleeding, drainage, or signs of infection within the dressing *Routine Neurological Exam Neurological: Present alert and oriented X3 Assessment and Plan *Assessment and plan (1) Pre-eclampsia affecting , antepartum: Status: Acute Category: Medical Code(s): O14.90 - Unspecified pre-eclampsia, unspecified trimester (2) Heartburn during : Status: Acute Qualifiers: Trimester: unspecified trimester Qualified Code(s): O26.899 - Other specified related conditions, unspecified trimester; R12 - Heartburn Category: Medical Code(s): O26.899 - Other specified related conditions, unspecified trimester; R12 - Heartburn (3) Positive urine drug screen: Problem Comment: THC Status: Acute Category: Medical Code(s): R82.5 - Elevated urine levels of drugs, medicaments and biological substances (4) LGSIL on Pap smear of cervix: Status: Acute Category: Medical Code(s): R87.612 - Low grade squamous intraepithelial lesion on cytologic smear of cervix (LGSIL) (5) Tobacco use affecting , antepartum: Status: Acute Category: Medical Code(s): O99.330 - Smoking (tobacco) complicating , unspecified trimester (6) Depression affecting : Status: Acute Category: Medical Code(s): O99.340 - Other mental disorders complicating , unspecified trimester; F32.A - Depression, unspecified (7) Hx of section: Problem Comment: x 2 Status: Acute Category: Surgical Code(s): Z98.891 - History of uterine scar from previous surgery (8) History of miscarriage, currently : Status: Acute Category: Medical Code(s): O09.299 - Supervision of with other poor reproductive or obstetric history, unspecified trimester (9) Prior poor obstetrical history, antepartum: Status: Acute Category: Medical Code(s): O09.299 - Supervision of with other poor reproductive or obstetric history, unspecified trimester Plan Preeclampsia -Status post 24 hours of magnesium -Elevated blood pressures, labetalol 100 mg twice daily initiated -Improving headache -Continue PIH labs every 24 hours Stable. POD#1 s/p RLTCS -Doing well. VSS. Serial lochia and fundal checks. -A+/antibody negative -Breast and Bottle feeding, female -Follow-up 2 weeks for routine visit and incision check #Anemia -Hemoglobin: 9.1--> 8.9 - asymptomatic anemia noted. Vitals stable. Continue monitoring. -EBL: 400mL -Continue PO at discharge home, discussed with pt -Dispo: home 1-3days pending mother/infant status
[2024-10-18] MEDS: PRENATAL MULTIVITAMIN W/IRON 1 EACH PO (18:00)
[2024-10-18] MEDS: IBUPROFEN 400 MG TABLET 800 MG PO (20:52)
[2024-10-18] MEDS: SERTRALINE 50MG TABLET 150 MG PO (20:53)
[2024-10-19] VITALS (7 sets, daily range): BP systolic 132–159; BP diastolic 79–88; PULSE 64–89; RESP 16–20; TEMP 36.6–36.9; O2SAT 97–100
[2024-10-19] MEDS: ACETAMINOPHEN 500MG TAB 1000 MG PO ×4 (00:16→18:09)
[2024-10-19] MEDS: IBUPROFEN 400 MG TABLET 800 MG PO ×3 (04:40→20:55)
--- NOTE | 2024-10-19 07:32 | P.PNANES_ITS ---
[facility] Anesthesia Record Part II Anesthesia Record Part II Discharge Time: 11:10 Destination: Surgical Day Care (OP Surgery) PACU nurse assessment reviewed?: Yes Patient Condition:: Good Anesthesia Complications:: None Swallowing reflex intact?: Yes Airway Patency: Patent Cyanosis?: No Blood Pressure: 145/88 SaO2: 100 Respiratory Rate: 20 Pulse Rate: 64 Temperature: 98 F Mental Status: Alert & Oriented Pain level:: 0 Nausea and/or vomitting:: None Intake, IV Amount: 0 Hydration: Adequate
[2024-10-19] MEDS: LABETALOL 100MG TABLET 100 MG PO ×2 (08:11→09:03)
--- NOTE | 2024-10-19 13:23 | EXP.ACUTE.PN ---
Subjective *Date: 10/19/24 *Time: 14:15 Interval history: POD # 2 s/p RLTCS Feeling well. Pain controlled. Breast feeding. Lochia is appropriate. Voiding without difficulty and passing flatus. Tolerating regular diet. Denies fever/chills, chest pain and shortness of breath. No headaches, vision changes, lightheadedness/dizziness. No lower extremity swelling. Ambulating well ad cordell. Medical Exam Vital signs and Labs for Last 24 Hours: Vital Signs Temp Pulse Resp BP Pulse Ox O2 Del Method 10/19/24 07:32 20 10/19/24 07:30 98.5 F 83 18 159/88 H 98 Room Air 10/19/24 04:37 98.4 F 79 16 140/83 98 Room Air 10/19/24 00:15 78 16 132/79 98 Room Air 10/18/24 20:34 98.4 F 70 16 131/81 98 Room Air 10/18/24 16:57 97.8 F 70 18 156/94 H 99 Room Air Intake and Output 10/18/24 10/19/24 10/19/24 23:59 07:59 15:59 Intake Total 0 / 0 Balance 0 / 0 Intake: Intake, Total IV Amount 0 / 0 I & O for Labs for Last 24 Hours: Intake & Output 10/16/24 10/17/24 10/18/24 10/19/24 23:59 23:59 23:59 23:59 Intake Total 2727 / 2727 2054 / 2054 0 / 0 Output Total 3010 / 3010 3835 / 3835 Balance -283 / -283 -1781 / -1781 0 / 0 Head: Present atraumatic and normocephalic ENT: Present mucous membranes moist Neck: Present full ROM Respiratory: Present CTA bilaterally and normal respiratory effort Cardiac: Present Reg Rate and Rhythm GI: Present soft and normal bowel sounds; Absent distention Rectal (female): Present deferred (female): Present deferred Extremities: Present full ROM; Absent edema or calf tenderness Neuro: Present alert, awake and moves all extremities Assessment and Plan *Assessment and plan (1) S/P repeat low transverse : Status: Acute Category: Surgical Code(s): Z98.891 - History of uterine scar from previous surgery (2) Pre-eclampsia affecting , antepartum: Status: Acute Category: Medical Code(s): O14.90 - Unspecified pre-eclampsia, unspecified trimester (3) affected by intrauterine growth restriction (IUGR): Status: Acute Category: Medical Code(s): O36.5990 - Maternal care for other known or suspected poor growth, unspecified trimester, not applicable or unspecified (4) Tobacco use affecting , antepartum: Status: Acute Category: Medical Code(s): O99.330 - Smoking (tobacco) complicating , unspecified trimester (5) Depression affecting : Status: Acute Category: Medical Code(s): O99.340 - Other mental disorders complicating , unspecified trimester; F32.A - Depression, unspecified (6) Hx of section: Problem Comment: x 2 Status: Acute Category: Surgical Code(s): Z98.891 - History of uterine scar from previous surgery Plan Continue routine care She is feeling well. BP mild range on Labetalol 100 mg TID. Switched Labetalol to 200 BID and will continue to monitor. She is asymptomatic She completed 24 hrs of mag sulfate Plan d/c home tomorrow
[2024-10-19] MEDS: PRENATAL MULTIVITAMIN W/IRON 1 EACH PO (18:10)
[2024-10-19] MEDS: SERTRALINE 50MG TABLET 150 MG PO (20:56)
[2024-10-19] MEDS: LABETALOL 100MG TABLET 200 MG PO (20:58)
[2024-10-20 00:41] VITALS: BP 146/88; PULSE 75; RESP 16; O2SAT 98
[2024-10-20] MEDS: ACETAMINOPHEN 500MG TAB 1000 MG PO ×2 (01:13→06:27)
[2024-10-20] MEDS: LANOLIN CREAM 40GM TP (02:00)
[2024-10-20 05:08] VITALS: BP 142/92; PULSE 79; RESP 16; TEMP 36.8; O2SAT 97
[2024-10-20] MEDS: IBUPROFEN 400 MG TABLET 800 MG PO (05:08)
--- NOTE | 2024-10-20 07:20 | P.DS_ITS ---
General Admission date:: 10/14/24 Discharge date: 10/20/24 HPI HPI HPI: POD # 3 s/p RLTCS Feeling well. Pain controlled. Breast feeding. Lochia is appropriate. Voiding without difficulty and passing flatus. Tolerating regular diet. Denies fever/chills, chest pain and shortness of breath. No headaches, vision changes, lightheadedness/dizziness. No lower extremity swelling. Ambulating well ad cordell. Hospital Course Hospital Course Hospital Course: Mrs Celeste Willis is a 28 yo at 35w3d admitted to [facility] L&D for preeclampsia with labile BP and headaches on 10/14/24 . BP in the office today was 150/90. She complains of headache. No vision changes today. She reported SBP 170's at home this morning. She was seen in L&D last night for elevated blood pressure reading at home and spots in her vision. BP was 140's/80's last night. PIH labs were within normal limits but spot protein/creatinine ratio was alicia vated, 1.11. She has history of delivery at 36 weeks secondary to nonreassuring status. She subsequently lost baby at 4 days of age. Her second child was then delivered at 36 weeks and did well. Her previous provider delivered early because of history with first . She also has history of SAB x 2. She hasn't been feeling well. She reports increased pelvic pressure and intermittent nausea. Baby is active. She has history of x 2. She has had positive THC urine drug screen. She has past medical history of anxiety and depression. She is taking Sertraline 150 mg PO daily. She received celestone x 2 doses and was monitored inpatient. On 10/17 she was headaches not relieved by medication and intermittent spots in her vision as well as BP 150's/90's. BPP of baby was 6/8 (2 off for breathing) and EFW was 9%ile, consistent with IUGR. Decision was made to proceed with repeat at 35w6d for preeclampsia with severe features and IUGR. She underwent repeat with delivery of live female baby, Estela. Weight: 5 pounds 5 ounces. Apgars 7 and 9 at 1 and 5 minutes respectively. EBL 400 mL. She received 24 hours of mag sulfate after delivery. She was started on Labetalol 100 mg PO TID then transitioned to Labetalol 200 mg PO q 12 hours. She did well /postoperatively. Pain controlled. Breast feeding. Light lochia. Voiding without difficulty and passing flatus. Tolerating regular diet. Denies fever/chills, chest pain and shortness of breath. No headaches, dizziness/lightheadedness or vision changes after delivery. Vital signs stable, afebrile. Heart regular rate and rhythm. Lungs clear to auscultation. Abdomen soft, nontender. No lower extremity swelling. Ambulating well ad cordell. Normal hospital course. She was discharged to home on POD # 3 with prescription for Labetalol and instructions to follow-up in the office in 3 days for BP check. Exam Data for Last 24 hours Vital signs and Labs for Last 24 Hours: Temp Pulse Resp BP Pulse Ox O2 Del Method 98.2 F 79 16 142/92 H 97 Room Air 10/20/24 05:08 10/20/24 05:08 10/20/24 05:08 10/20/24 05:08 10/20/24 05:08 10/20/24 05:08 I & O for Last 24 hours: Intake & Output 10/17/24 10/18/24 10/19/24 10/20/24 23:59 23:59 23:59 23:59 Intake Total 2727 / 2727 2053 / 2053 0 / 0 Output Total 3010 / 3010 3835 / 3835 Balance -283 / -283 -1781 / -1781 0 / 0 Constitutional Constitutional: no acute distress and cooperative *Routine HEENT Exam Head: Present normocephalic and atraumatic Eye: Absent conjunctivae pink ENT: Present mucous membranes moist *Routine Neck Exam Neck: Present full ROM *Routine Respiratory Exam Respiratory: Present CTA bilaterally and normal respiratory effort *Routine Cardiovascular Exam Cardiovascular: Present RRR *Routine Abdominal Exam Abdominal: Present soft; Absent tenderness or distended Comments: Pfannenstiel incision clean/dry/intact; no erythema or drainage *Routine Rectal Exam Patient deferred: visual exam *Routine Exam Patient deferred: external exam *Routine Extremities Exam Extremities: Present full ROM; Absent edema or calf tenderness *Routine Neurological Exam Neurological: Present alert, moving all extremities and normal speech Routine Psychiatric Exam Psychiatric: Present normal affect and cooperative DS: Diagnosis Discharge Diagnosis (1) S/P repeat low transverse : Status: Acute Code(s): Z98.891 - History of uterine scar from previous surgery (2) Pre-eclampsia affecting , antepartum: Status: Acute Code(s): O14.90 - Unspecified pre-eclampsia, unspecified trimester (3) affected by intrauterine growth restriction (IUGR): Status: Acute Code(s): O36.5990 - Maternal care for other known or suspected poor growth, unspecified trimester, not applicable or unspecified (4) Tobacco use affecting , antepartum: Status: Acute Code(s): O99.330 - Smoking (tobacco) complicating , unspecified trimester (5) Depression affecting : Status: Acute Code(s): O99.340 - Other mental disorders complicating , unspecified trimester; F32.A - Depression, unspecified (6) Hx of section: Status: Acute Code(s): Z98.891 - History of uterine scar from previous surgery Problem details: x 2 Meds Home Medications and Allergies Home Medications ?Medication ?Instructions ?Recorded ?Confirmed ?Type cephalexin 500 mg capsule 500 mg PO Q6H 7 days #28 caps 10/12/24 10/14/24 Rx ondansetron 4 mg disintegrating 4 mg PO Q8HP PRN Nausea And 10/14/24 10/14/24 History tablet Vomiting sertraline 100 mg tablet 150 mg PO DAILY 10/14/24 10/14/24 History ibuprofen 800 mg tablet 800 mg PO Q8H PRN pain #20 tabs 10/20/24 Rx labetalol 200 mg tablet 200 mg PO Q12H #60 tabs 10/20/24 Rx oxycodone 5 mg tablet 5 mg PO Q4HP PRN Moderate Pain 10/20/24 Rx (4-6) #20 tabs New Prescriptions to Start Prescriptions: Sylvie Ruelas labetalol Sylvie Hein oxycodone Sylvie Hein Allergies Allergy/AdvReac Type Severity Reaction Status Date / Time No Known Allergies Allergy Verified 10/14/24 09:20 Discharge Plan Disposition Patient Disposition: Home, Self-Care Condition: Good Discharge Order Discharge Orders: Discharge Order (Routine); Ordered 10/20/24 Ordered By: Sylvie Hein Follow up Plan Follow up with: Sylvie Hein DO [Staff Physician] - 10/23/24 2:30 pm Prescriptions/Medication Reconciliation: New oxycodone 5 mg Tablet 5 mg PO Q4HP PRN (Reason: Moderate Pain (4-6)) Qty: 20 0RF ibuprofen 800 mg tablet 800 mg PO Q8H PRN (Reason: pain) Qty: 20 0RF labetalol 200 mg tablet 200 mg PO Q12H Qty: 60 0RF Continued cephalexin 500 mg capsule 500 mg PO Q6H 7 Days Qty: 28 0RF ondansetron 4 mg tablet,disintegrating 4 mg PO Q8HP PRN (Reason: Nausea And Vomiting) sertraline 100 mg tablet 150 mg PO DAILY Problem Reconciliation Problems Reviewed?: Yes Patient Discharge Instructions ACTIVITY: Limited activity DIET: continue same diet and regular diet Additional Instructions: Discharge: 1. Take 800 mg Ibuprofen every 8 hours as needed for pain. You can also take 500-1000 mg of Tylenol in between doses, every 6-8 hours. If pain persists you can take Oxycodone 5 mg, 1 tablet every 4-6 hours or more as needed. 2. Nothing in the vagina for 6 weeks - no intercourse, douching or tampons. No tub baths/hot tubs or swimming pools - Drink plenty of fluids. - No strenuous activity or driving until released by your doctor. - Don't lift anything heavier than your . 3. Reasons to return to L&D or call On-Call doctor - fever (greater than 100.4) - heavy vaginal bleeding (soaking through 1 pad in less than 2 hours) - vaginal discharge (malodorous and/or purulent) - severe headaches not resolved by medication or rest and leg tenderness/edema 4. depression/blues - Normal to feel anxious/overwhelmed for first 2 weeks - Talk to your doctor if: severe anxiety, trouble bonding with baby, withdrawing from other family members, thoughts of harming yourself or others Patient Instructions: Depression, Hemorrhage, DI for , DI for Pre-eclampsia, [facility] Post Discharge Instructions Print Language: Slovenian Providers Primary Care Provider: Annita Muñoz Admluzma Provider: Sylvie Hein Attending Provider: Pedro Luis Ryan
[2024-10-20 08:15] VITALS: BP 136/84; PULSE 79; RESP 16; TEMP 36.8; O2SAT 98
[2024-10-20] MEDS: LABETALOL 100MG TABLET 200 MG PO (08:44)
== END 2024-10-20 11:40 | disposition home or self-care (01) | DRG 788 ==
PROVIDERS: Obstetrics & Gynecology; Admitting Provider Obstetrics & Gynecology; PCP Nurse Practitioner; Visit Provider Nurse Practitioner Obstetrics & Gynecology
PROC: 10D00Z1 Extraction of Products of Conception, Low, Open Approach (ICD-10-PCS; CPT 59514; principal; 2024-10-17 09:30)
DX: O34.211 Maternal care for low transverse scar from previous cesarean delivery (principal); O14.94 Unspecified pre-eclampsia, complicating childbirth; F17.290 Nicotine dependence, other tobacco product, uncomplicated; O99.334 Smoking (tobacco) complicating childbirth; N85.8 Other specified noninflammatory disorders of uterus; Z3A.35 35 weeks gestation of pregnancy; Z37.0 Single live birth; O36.5930 Maternal care for other known or suspected poor fetal growth, third trimester, not applicable or unspecified
CPT/HCPCS: 36415; 59025; 76811; 76816; 76819; 76820; 80053; 80307; 81001; 82570; 82800; 83615; 83735; 84155; 84550; 85007; 85025; 85384; 85610; 85730; 86592; 86850; 94761; G0283; J0690; J0702; J1885; J2405; J7120

== ENCOUNTER 2025-04-09 08:25 | Outpatient (CLI) | payer BC, SELFPAY ==
[2025-04-09 14:28] LABS: Influenza A, PCR Not Detected (NotDetected); Influenza B, PCR Not Detected (NotDetected)
[2025-04-09 16:05] LABS: Coronavirus 19, PCR Detected (NotDetected)
== END 2025-04-09 23:59 | disposition home or self-care (01) ==
LOC: LAB.DROPOF 04-13 08:26
PROVIDERS: PCP Nurse Practitioner; Visit Provider Nurse Practitioner Family
DX: J06.9 Acute upper respiratory infection, unspecified (principal)
CPT/HCPCS: 87631

== ENCOUNTER 2025-07-09 08:23 | Outpatient (CLI) | payer BC, SELFPAY ==
--- OUTSIDE RECORDS SUMMARY | 2025-07-10 08:27 | XMS_ITS | Clinical Summary ---
[facility] Organization [facility] Address [address] [place] [address] Care Team Providers Care Town Clerk Name Role Phone Annita Muñoz APRN Primary Care Provider [phone] Family History Medical History Relation Name Comments Breast cancer Mother Ovarian cancer Neg Hx Relation Name Status Comments Mother Alive Social History Tobacco Use Types Packs/Day Years Used Date Smoking Tobacco: Never Assessed Abuse Screen Answer Date Recorded Unsafe at Home or Work/School Not on file Feels Threatened by Someone? Not on file Does Anyone Keep You from Co ntacting Others or Doint Things Outside the Home? Not on file 12/12/2023 Physical Sign of Abuse Present Not on file 0 12/12/2023 Housing Stability Answer Date Recorded Current Living Arrangements Not on file 11/24 Potentially Unsafe Housing Conditions Not on lalo e 12/12/2023 Family and Community Support Answer Prakash e Recorded Help with Day-to-Day Activities Not on file 12/12/2023 Lonely or Isolated Not on file 12/12/2023 Employment Answer Date Recorded Do you want help finding or keeping work or a loi b? Not on file 12/12/2023 Disabilities Answer Date Recorded Concentrating, Remembering, or Making Decisions Difficulty Not on file 12/12/2023 Doing Errands Independently Difficulty Not on fi le 12/12/2023 Education Answer Date Recorded Help with school or training? Not on file Preferred Language Not on file 12/12/2023 Comments No Sex and Gender Information Value Date Recorded Sex Assigned at Not on file Legal Sex Female 10:37 AM EDT Gender Identity Not on file Sexual Orientation Not on file Plan of Treatment Health Maintenance Due Date Last Done Comments ANNUAL PHYSICAL 1995 Annual Gynecologic Pelvic an d Breast Exam 1995 HEPATITIS C SCREENING 1995 TDAP/TD VACCINES (1 - Tdap) 2014 INFLUENZA VACCINE 03/26/2025 Pneumococcal Vaccine 0-49 Aged Out No longer eligible based on patient's age to complete this topic Insurance Care Teams Town Clerk Relationship Specialty Start Date End Date Annita Muñoz APRN [address] [place] [id number] PCP - General Nurse Practitioner 12/12/23
== END 2025-07-09 23:59 | disposition home or self-care (01) ==
LOC: LAB.DROPOF 07-10 08:23
PROVIDERS: PCP Nurse Practitioner; Visit Provider Student in an Organized Health Care Education/Training Program
DX: N39.0 Urinary tract infection, site not specified (principal)
CPT/HCPCS: 87086; 87088; 87186